=== PATIENT | female | born 1945 | race Caucasian/White ===

== ENCOUNTER 2018-04-23 13:00 | Inpatient (IN) ==
[2018-04-23 16:09] LABS: Appearance,Urine CLEAR; Bilirubin,Urine NEG (NEG); Color,Urine YELLOW; Glucose,Urine (UA) NEGATIVE (NEG); Leukocyte Esterase,Urine NEG /uL (NEG); Protein,Urine NEG (NEG); Specific Gravity,Urine 1.023 (1.000-1.035); Urine Blood NEG mg/dL (<0.03); Urobilinogen,Urine NEG (NEG)
[2018-04-23 17:40] LABS: Basophils # (Auto) 0 K/mcL (0.0-0.3); Basophils % (Auto) 0.4 % (0.0-2.0); Eosinophils # (Auto) 0.1 K/mcL (0.0-0.7); Eosinophils % (Auto) 1.5 % (0.0-7.0); Granulocytes % (Auto) 69.9 % (38.0-78.0); Lymphocytes # (Auto) 0.8 K/mcL (1.5-4.8); Lymphocytes % (Auto) 16.4 % (15.5-49.0); Mean Cell Volume 98.2 fL (80.0-100.0); Mean Corpuscular HGB Conc 33.5 g/dL (31.0-36.0); Mean Corpuscular Hemoglobin 32.9 pg (26.0-34.0); Monocytes # (Auto) 0.5 K/mcL (0.1-0.9); Monocytes % (Auto) 11.8 % (1.0-12.0); Platelet Count 150 K/mcL (140-440); Red Cell Distribution Width 14.4 % (11.5-14.5)
[2018-04-23 17:44] LABS: Blood Urea Nitrogen 11 mg/dl (8-23)
[2018-04-28] MEDS ORDERED: ceFAZolin 1 GM VIAL IV SCH (06:00)
[2018-04-28] MEDS ORDERED: ACETAMINOPHEN 500 MG TABLET PO SCH (07:00)
[2018-04-28] MEDS ORDERED: oxyCODONE 10 MG TAB.ER.12H PO SCH (07:00)
[2018-04-28] MEDS ORDERED: PREGABALIN 75 MG CAPSULE PO SCH (07:00)
[2018-04-28] MEDS ORDERED: CELECOXIB 200 MG CAPSULE PO SCH (07:00)
[2018-04-28] MEDS ORDERED: VANCOMYCIN 1,000 MG in 0.9 % SODIUM CHLORIDE 250 ML IV SCH (08:00)
[2018-04-28] MEDS ORDERED: SUCCINYLCHOLINE 20 MG/ML ML IV ONE (16:45)
[2018-04-28] MEDS ORDERED: fentaNYL 250 MCG/5 ML VIAL IV ONE (16:45)
[2018-04-28] MEDS ORDERED: PROPOFOL 200 MG/20 ML VIAL IV ONE (16:45)
[2018-04-28] MEDS ORDERED: KETAMINE 100 MG/ML ML IV ONE (16:45)
[2018-04-28] MEDS ORDERED: ONDANSETRON 4 MG/2 ML VIAL IV ONE (16:45)
[2018-04-28] MEDS ORDERED: TRANEXAMIC ACID 1,000 MG/10 ML VIAL IV ONE ×2 (16:45→18:04)
[2018-04-28] MEDS ORDERED: ROPIVACAINE HCL/PF 30 ML VIAL IJ ONE (16:45)
[2018-04-28] MEDS ORDERED: LIDOCAINE HCL/PF 100 MG/5 ML SYRINGE IV ONE (16:45)
[2018-04-28] MEDS ORDERED: GLYCOPYRROLATE 0.2 MG/ML VIAL IV ONE (16:45)
[2018-04-28] MEDS ORDERED: MIDAZOLAM 5 MG/5 ML VIAL IV ONE (16:45)
[2018-04-28] MEDS ORDERED: DEXAMETHASONE 10 MG/ML VIAL IV ONE (16:45)
[2018-04-28] MEDS ORDERED: GENTAMICIN SULFATE 800 MG/20 ML VIAL IR ONE (17:13)
[2018-04-28] MEDS ORDERED: MEPERIDINE 25 MG/ML SYRINGE IV PRN (17:35)
[2018-04-28] MEDS ORDERED: IPRATROPIUM/ALBUTEROL 3 ML AMPUL.NEB NEB PRN (17:35)
[2018-04-28] MEDS ORDERED: NALOXONE HCL 0.4 MG/ML VIAL IV PRN (17:35)
[2018-04-28] MEDS ORDERED: FLUMAZENIL 0.1 MG/ML ML IV PRN (17:35)
[2018-04-28] MEDS ORDERED: METHOCARBAMOL 1,000 MG/10 ML VIAL IV PRN (17:35)
[2018-04-28] MEDS ORDERED: HYDROmorphone 2 MG/ML VIAL IV PRN ×2 (17:35→18:04)
[2018-04-28] MEDS ORDERED: BENZOCAINE/MENTHOL 1 LOZENGE PO PRN ×2 (17:35→18:04)
[2018-04-28] MEDS ORDERED: LACTATED RINGERS 250 ML IV PRN (17:35)
[2018-04-28] MEDS ORDERED: ONDANSETRON 4 MG/2 ML VIAL IV PRN ×2 (17:35→18:04)
[2018-04-28] MEDS ORDERED: LACTATED RINGERS 1,000 ML IV SCH (17:45)
[2018-04-28] MEDS ORDERED: POLYETHYLENE GLYCOL 3350 17 GM PACKET PO PRN (18:04)
[2018-04-28] MEDS ORDERED: ACETAMINOPHEN 325 MG TABLET PO PRN (18:04)
[2018-04-28] MEDS ORDERED: BISACODYL 10 MG SUPP.RECT PR PRN (18:04)
[2018-04-28] MEDS ORDERED: FLEETS ADULT ENEMA PR PRN (18:04)
[2018-04-28] MEDS ORDERED: MAGNESIUM HYDROXIDE 30 ML ORAL.SUSP PO PRN (18:04)
[2018-04-28] MEDS ORDERED: TEMAZEPAM 15 MG CAPSULE PO PRN (18:04)
[2018-04-28] MEDS ORDERED: KETOROLAC 15 MG/ML VIAL IV PRN (18:04)
--- NOTE | 2018-04-28 18:04 | Brief Operative Note ---
Date of procedure: 04/28/18 Pre-op diagnosis: Left shoulder djd and rca Post-op diagnosis: same Procedure: Left reverse tsa with bicep tenodesis Grafts/Implants: Yes Anesthesia: SHERICE Surgeon: Modesto Siegel Intelligence Operations: Reggie Torres Estimated blood loss (cc): 100 Specimens Removed/Pathology: none sent Condition: stable Disposition: PACU
--- NOTE | 2018-04-28 18:23 | Discharge Summary ---
Ortho Discharge - TSA - Patient Instructions Diet: Regular Diet Activity: activity as tolerated, weight bearing as tolerated Total Shoulder Protocol: Leave immobilizer in place except for bathing and ROM. Abduction pillow. Continue to wear sling until seen by physician. Codman Pendulum : These exercises use momentum produced by your body to move your shoulder joint. Bend your knees and shift your weight to your front leg, then back, allowing your arm to swing in the same directions. Using the same technique, alternately shift your weight between your right and left legs, allowing your arm to swing from side to side. These exercises are also performed in counterclockwise and clockwise circular motions. Typically these exercises are performed several times per day, for a set number repetitions or minutes, such as 20 times in a row or 5 minutes at a time. Dressing Care: May shower in 2 days - Follow Up Plan Follow Up Appointments: Reggie Torres PA-C [Physician Mural Painter] - 05/15/18 3:50 pm Disposition: Home, Self-Care Prognosis: Good Rehab Potential: Good I certify that the patient requires SNF services: No Overall status at discharge: patient is progressing back to baseline - Orders For Discharge Prescriptions: Docusate Sodium [Colace] 100 mg PO BID #60 cap HYDROcodone/APAP 10/325MG [[place] 10-325Mg] 1 - 2 tab PO Q4HP PRN #75 tab PRN Reason: Pain Level 3-6
--- NOTE | 2018-04-28 18:44 | XRay Report ---
CLINICAL INFORMATION: Postsurgical follow-up TECHNIQUE: Portable AP and Y views COMPARISON: None. FINDINGS: Status post left reverse shoulder arthroplasty. Alignment appears anatomic. Left lung is poorly visualized but left basilar infiltrate is suspected. Clinical correlation and follow-up radiographs recommended. IMPRESSION: 1. Left reverse shoulder arthroplasty 2. Probable left lung infiltrates Interpreted and Authenticated by: Oskar Tim 04/28/18
[2018-04-28] MEDS: fentaNYL 100 MCG/2 ML VIAL IV PRN ×2 (18:46→18:59)
[2018-04-28] MEDS: DOCUSATE SODIUM 100 MG CAPSULE PO SCH (20:50)
[2018-04-28] MEDS: 0.9 % SODIUM CHLORIDE 10 ML SYRINGE IV SCH (20:50)
[2018-04-28] MEDS: METHOCARBAMOL 750 MG TABLET PO SCH (20:50)
[2018-04-28] MEDS: buPROPion 150 MG TAB.SR.12H PO SCH (20:50)
[2018-04-28] MEDS: 0.45 % SODIUM CHLORIDE 1,000 ML IV SCH (20:53)
[2018-04-28] MEDS ORDERED: CALCIUM (OYSTER SHELL) 500 MG TABLET PO SCH (21:00)
[2018-04-28] MEDS ORDERED: traZODone HCL 150 MG TABLET PO SCH (21:00)
[2018-04-28] MEDS ORDERED: SENNOSIDES 1 TABLET PO SCH (21:00)
[2018-04-28] MEDS ORDERED: VERAPAMIL 120 MG TAB.XL.24H PO SCH (21:00)
[2018-04-28] MEDS ORDERED: ASCORBIC ACID 500 MG TABLET PO SCH (21:00)
[2018-04-28] MEDS ORDERED: ATORVASTATIN 20 MG TABLET PO SCH (21:00)
[2018-04-28] MEDS ORDERED: amLODIPine 5 MG TABLET PO SCH (21:00)
[2018-04-28] MEDS: HYDROcodone/APAP 10/325MG TABLET PO PRN (21:31)
[2018-04-28] MEDS: FLUTICASONE PROPIONATE INH SCH (21:33)
[2018-04-28] MEDS: FLUTICASONE/SALMETEROL 500/50 INHALER #14 INH SCH (21:33)
[2018-04-28] MEDS: ceFAZolin 1 GM VIAL IV SCH (23:49)
[2018-04-29] MEDS: HYDROcodone/APAP 10/325MG TABLET PO PRN ×2 (04:42→10:31)
[2018-04-29] MEDS: 0.45 % SODIUM CHLORIDE 1,000 ML IV SCH (04:49)
[2018-04-29] MEDS: 0.9 % SODIUM CHLORIDE 10 ML SYRINGE IV SCH (06:11)
[2018-04-29] MEDS ORDERED: LEVOTHYROXINE 75 MCG TABLET PO SCH (07:30)
--- NOTE | 2018-04-29 07:34 | Orthopedic Progress Note ---
Subjective Patient information: Note initiated : 04/29/18 at 7:33 am Service Date, if different from initiated Date: [] Patient: Jacinda Fields 72 y/o F admitted on 04/28/18 for Left Reverse Total Shoulder Arthroplasty. Chief Complaint: [] Pt is stable this morning on post operative day 1 without any significant concerns or complaints. Patients vital signs have remained stable. Patients dressing is dry and is grossly intact from a neurovascular and motor standpoint. Patients 10 point ROS is otherwise negative. Objective Vital signs: Vital Signs Temp Pulse Resp BP BP Pulse Ox 04/29/18 04:45 97.4 F 84 16 116/69 92 04/28/18 23:38 97 04/28/18 23:14 97.4 F 81 16 125/71 97 04/28/18 22:20 94 04/28/18 22:14 84 121/72 83 L 04/28/18 20:44 75 138/78 98 04/28/18 20:00 97 04/28/18 19:59 73 139/82 98 04/28/18 19:44 75 130/80 96 04/28/18 19:29 77 117/71 94 04/28/18 19:14 96.4 F L 80 121/68 93 04/28/18 18:53 76 16 151/71 94 04/28/18 18:38 75 15 159/66 97 04/28/18 18:23 82 15 151/66 96 04/28/18 18:18 77 16 142/71 96 04/28/18 18:13 76 14 114/56 97 04/28/18 18:08 97.1 F 78 12 139/65 97 04/28/18 10:56 97.0 F 83 18 160/82 97 Intake and Output 04/28/18 04/29/18 04/29/18 21:59 05:59 13:59 Intake Total 240 / 240 1483 / 1483 Output Total 200 / 200 350 / 350 Balance 40 / 40 1133 / 1133 Intake: IV 783 / 783 Sodium Chloride 0.45% 1,000 ml 783 / 783 @ 100 mls/hr IV .Q10H [facility] Rx#: [id number] Oral 240 / 240 700 / 700 Output: Void Amount 200 / 200 350 / 350 Other: Meal Nourishment/Supplement Percent of Meal Consumed 100% Feeding Ability Independent Urine Color Dark Yellow Urine Odor Normal Weight 154 lb Intake & Output: Intake & Output 04/28/18 04/29/18 04/29/18 21:59 05:59 13:59 Intake Total 240 / 240 1483 / 1483 Output Total 200 / 200 350 / 350 Balance 40 / 40 1133 / 1133 Weight 154 lb Intake: IV 783 / 783 Sodium Chloride 0.45% 1,000 ml 783 / 783 @ 100 mls/hr IV .Q10H [facility] Rx#: [id number] Oral 240 / 240 700 / 700 Output: Void Amount 200 / 200 350 / 350 Other: Meal Nourishment/Supplement Percent of Meal Consumed 100% Feeding Ability Independent Urine Color Dark Yellow Urine Odor Normal Incision: Yes healing Incision clean and dry: Yes Dressing: Yes clean Weight bearing status: full Neurological exam IM: Yes motor sensory intact, Yes neurovascular intact Extremities exam IM: Yes neurovascular intact - Labs CBC & BMP: 04/23/18 14:02 04/23/18 14:02 Labs: Orthopedic Labs 04/23/18 14:02 PT 12.3 INR 0.9 APTT 22 04/23/18 14:02 Hgb 12.8 Hct 38.3 Assessment and Plan (1) History of reverse total replacement of left shoulder joint The patient has been educated regarding dressing care, Physical Therapy recommendations, home exercises, restrictions, and follow up appointments. The patient has had all necessary DME prescribed. The patient has remained relatively stable during their hospital course. Leave Dermabond patch intact until followup Status: Acute
[2018-04-29] MEDS ORDERED: POTASSIUM CHLORIDE 10 MEQ TABLET PO SCH (08:00)
[2018-04-29] MEDS ORDERED: NABUMETONE 500 MG TABLET PO SCH (08:00)
--- NOTE | 2018-04-29 08:22 | Operative Note ---
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 PROCEDURE: Left reverse total shoulder and biceps tenodesis. SURGEON: Modesto Siegel MD IMPORTER OR EXPORTER: Reggie Torres PA-C ANESTHESIA: General anesthesia. COMPLICATIONS: None. ESTIMATED BLOOD LOSS: About 100 mL IMPLANTS: A size 10 stem with a standard thickness poly, 36 mm glenosphere metaglene and a central screw measuring 32, 2 Peripheral screws, 32 and a 24 screw. A small amount of cement was used to fix the stem to help it grow in because of the softness of the bone. DESCRIPTION OF PROCEDURE: The patient was brought to the operating room and put to sleep with general LMA anesthesia. Once asleep, the patient had the left arm sterilely prepped and draped in the usual sterile fashion. Ioban was placed over the skin and a timeout had been performed. The consent form was read and initials on the skin as well as the x-rays were all confirmatory of the left reverse total shoulder. At this point, we proceeded with a deltopectoral approach. Anteriorly we made about a 4 inch incision, identified the deltoid and the cephalic vein was retracted laterally. We then retracted the conjoint tendon medially. We released the subscap and the biceps tendon. The biceps tendon was then identified and tenodesed to the pectoralis major muscle with #1 Ethibond stitch in a figure-of-8 fashion. Once done, we then proceeded with subluxing the head or dislocating the head anteriorly. We released the soft tissues inferiorly and removed spurs and loose bodies. Once done, we then made our neck cut at 130 degree angle in 20 degrees of retroversion using the [employer] guide. Once this had been done, we irrigated thoroughly and then subluxed the head posteriorly, identified the glenoid and performed a 360 degree capsular release. I placed the pin centrally and reamed up to the size 36, placed the glenosphere. The glenosphere was placed centrally as well and we placed a central screw measuring 32 mm in length. This is a 6.5 central screw with excellent fixation and compression of the glenoid; 3 peripheral screws, 2 32 mm screws, one 24 mm screw was placed. We placed a 36 mm glenosphere without offset or eccentricity. This was tapped into place, excellent fixation achieved. We irrigated thoroughly and then subluxed the humerus anterior to the glenoid and prepared the shaft. This was broached up to a size 10. We then trialed the size 10 stem with a standard poly. This fit very nicely after making some adjustment trimmings. We placed a small amount of cement down into the canal after preparing the bone and the proximal portion of the stem was porous ingrowth which was tapped into place with a 10 stem. A standard thickness poly was tapped into place and this was reduced and very stable. The tension was perfect and we had 1 mm of shuck when we pulled the arm. This was very stable. We irrigated thoroughly and then repaired the deltopectoral interval as well as the skin with Stratafix. Adhesive closure was placed on the skin with a standard bandage. A DonJoy sling was fitted and given to the patient at the end of the case. Blood loss was about 100 mL. No complications. KIRAH:maurice Job ID: [id number] Doc ID: [id number] Modesto Siegel MD
[2018-04-29] MEDS: METHOCARBAMOL 750 MG TABLET PO SCH (08:44)
[2018-04-29] MEDS: buPROPion 150 MG TAB.SR.12H PO SCH (08:45)
[2018-04-29] MEDS: FLUTICASONE/SALMETEROL 500/50 INHALER #14 INH SCH (08:46)
[2018-04-29] MEDS: DOCUSATE SODIUM 100 MG CAPSULE PO SCH (08:47)
[2018-04-29] MEDS: FLUTICASONE PROPIONATE INH SCH (08:47)
[2018-04-29] MEDS: ceFAZolin 1 GM VIAL IV SCH (08:59)
[2018-04-29] MEDS ORDERED: LOSARTAN/HCTZ 100/25 TABLET PO SCH (09:00)
[2018-04-29] MEDS ORDERED: PANTOPRAZOLE 40 MG TABLET PO SCH (09:00)
[2018-04-29] MEDS ORDERED: MONTELUKAST 10 MG TABLET PO SCH (09:00)
[2018-04-29] MEDS ORDERED: MAGNESIUM OXIDE 400 MG TABLET PO SCH (09:00)
[2018-04-29] MEDS ORDERED: VITAMIN D3 5,000 UNIT CAPSULE PO SCH (09:00)
[2018-04-29] MEDS ORDERED: MULTIVIT,THER IRON,CA,FA & MIN 1 TABLET PO SCH (09:00)
[2018-04-29] MEDS ORDERED: FISH OIL 1,000 MG CAPSULE PO SCH (09:00)
[2018-04-29] MEDS ORDERED: LOSARTAN 50 MG TABLET PO SCH (09:00)
[2018-04-29] MEDS ORDERED: HYDROCHLOROTHIAZIDE 25 MG TABLET PO SCH (09:00)
[2018-04-29] MEDS ORDERED: ESTROGENS, CONJUGATED 0.9 MG TABLET PO SCH (09:00)
[2018-04-29] MEDS ORDERED: PARoxetine 20 MG TABLET PO SCH (09:00)
== END 2018-04-29 13:00 | disposition home or self-care (01) | DRG 483 ==
LOC: MEDSUR 04-28 10:56
PROVIDERS: ADMIT Orthopaedic Surgery; ATTEND Orthopaedic Surgery
CPT/HCPCS: 97161

== ENCOUNTER 2021-10-10 08:21 | Inpatient (IN) ==
--- NOTE | 2021-10-10 08:25 | Emergency Department Note ---
HPI General Chief complaint: Weakness Stated complaint: weakness, vision change Time Seen by Provider: 10/10/21 08:25 Source: patient and family (Daughter) Mode of arrival: wheelchair Limitations: physical limitation (Confusion) History of Present Illness HPI Narrative: Narrative: 75-year-old female presents emerged department because of weakness. Patient states she has not felt well for 3 weeks. She is lost her appetite. She has no new pains. She has sores on her body which she has had sores for years she states. her daughter says she is just generally been declining. Daughter states she has had confusion the past 1 to 2 weeks. Patient complains of left eye vision split. Patient states she has scratches from both her cat and her dog. Patient has a history of MRSA. Rates her discomfort as mild. Constant since it started worse with time. Patient has had the COVID-vaccine. Patient states she drinks 3 cans of beer a day, 16 ounces. Patient has history of asthma, TIA but no hepatitis or liver disease and no cardiac disease. Related Data Home Medications Medication Instructions Recorded Confirmed cholecalciferol (vitamin D3) 125 5,000 unit PO QDAY 11/16/14 03/02/21 mcg (5,000 unit) capsule conjugated estrogens 0.9 mg tablet 0.9 mg PO DAILY 11/16/14 03/02/21 levothyroxine 75 mcg tablet 75 mcg PO DAILY 11/16/14 03/02/21 losartan 100 1 tab PO DAILY 11/16/14 03/02/21 mg-hydrochlorothiazide 25 mg tablet montelukast 10 mg tablet 10 mg PO QDAY 11/16/14 03/02/21 xgfrbssw-fjml-xao-green tea ex 18 1 each PO QDAY 11/16/14 03/02/21 mg-0.4 mg-27 mg tablet nabumetone 750 mg tablet 750 mg PO BIDCC 11/16/14 03/02/21 omega-3 fatty acids-fish oil 340 1,000 mg PO DAILY 11/16/14 03/02/21 mg-1,000 mg capsule pantoprazole 40 mg tablet,delayed 40 mg PO QDAY 11/16/14 03/02/21 release verapamil 240 mg tablet,extended 240 mg PO HS 11/16/14 03/02/21 release ascorbic acid (vitamin C) 500 mg 500 mg PO HS 11/10/15 03/02/21 tablet magnesium oxide 400 mg PO QDAY 11/10/15 03/02/21 calcium carbonate 500 mg calcium 1,000 mg PO HS 04/23/18 03/02/21 (1,250 mg) tablet fluticasone 500 mcg-salmeterol 50 1 inh INH BID 04/23/18 03/02/21 mcg/dose blistr powdr for inhalation fluticasone propionate 250 1 each INH BID 04/23/18 03/02/21 mcg/actuation blister powder for inhalation potassium chloride 10 mEq 10 meq PO BIDCC 04/23/18 03/02/21 tablet,extended release albuterol sulfate 90 mcg/actuation 2 puff INHALATION Q4H PRN g 11/21/18 03/02/21 aerosol inhaler aspirin 325 mg tablet 325 mg PO QDAY 11/21/18 03/02/21 atorvastatin 10 mg tablet 10 mg PO QHS 11/21/18 03/02/21 clobetasol 0.05 % scalp solution 1 applic TOPICAL QDAY 11/21/18 03/02/21 amlodipine 5 mg tablet 5 mg PO QDAY tab 12/10/18 03/02/21 methocarbamol 750 mg tablet 750 mg PO TID tab 12/10/18 03/02/21 Previous Rx's Medication Instructions Recorded hydrocodone 5 mg-acetaminophen 325 1 tab PO Q4H PRN #20 tab 04/25/20 mg tablet hydrocodone 5 mg-acetaminophen 325 1 tab PO Q6H PRN #10 tab 10/04/20 mg tablet hydrochlorothiazide 12.5 mg tablet 12.5 mg PO QAM #10 tab 10/07/20 trazodone 300 mg tablet See Rx Instructions .ROUTE 01/31/21 .COMPLEX #180 tab gabapentin 400 mg capsule 400 mg PO TID #1 cap 03/02/21 duloxetine 20 mg capsule,delayed 40 mg PO QDAY #180 cap 04/17/21 release prazosin 1 mg capsule See Rx Instructions .ROUTE 05/29/21 .COMPLEX #90 cap Allergies Allergy/AdvReac Type Severity Reaction Status Date / Time latex Allergy Intermediate Blister Verified 10/10/21 08:24 naproxen Allergy Mild Blisters Verified 10/10/21 08:24 quinapril [From Accupril] Allergy Mild Cough Verified 10/10/21 08:24 ciprofloxacin [From Cipro] Allergy Unknown Vomiting Verified 10/10/21 08:24 metoclopramide [From Reglan] AdvReac Mild Shakiness Verified 10/10/21 08:24 niacin AdvReac Mild Chest Pain Verified 10/10/21 08:24 venlafaxine [From Effexor] AdvReac Mild Insomnia Verified 10/10/21 08:24 Review of Systems ROS ROS Narrative: Narrative: Constitutional: Denies fever Eyes: Denies eye discharge ENT ED: Denies throat pain or rhinorrhea Cardiovascular: Denies chest pain Respiratory: Reports shortness of breath (When she exerts herself.) Gastrointestinal: Denies nausea or vomiting Genitourinary: Denies dysuria Musculoskeletal: Reports back pain Integumentary: Denies rash Neurological: Denies headache Psychiatric: Reports depression; Denies anxiety PFSH Narrative Patient History Narrative: Narrative: Medical/Surgical/Family History All Active Problems (Updated 10/10/21 @ 17:03 by Wesly Mccoy MD) Eyelid laceration, right (Chronic) Periorbital hematoma of right eye (Chronic) Laceration (Chronic) Traumatic hematoma of face (Chronic) Alcohol use disorder (Chronic) Contusion (Chronic) Fracture of distal end of fibula (Chronic) Ankle fracture (Chronic) Postoperative pain (Chronic) Fall (on) (from) other stairs and steps, initial encounter (Chronic) Facial laceration (Chronic) Abrasion, face w/o infection (Chronic) Alcohol ingestion (Chronic) Encounter for removal of sutures (Chronic) 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) Depression (Chronic) Anxiety (Chronic) MRSA (methicillin resistant Staphylococcus aureus) (Chronic) Tubular adenoma of colon (Chronic) Hypothyroidism (Chronic) Hypercholesterolemia (Chronic) Hyperlipidemia (Chronic) Dyslipidemia (Chronic) Hypomagnesemia (Chronic) Anemia (Chronic) Hypertension (Chronic) GERD (gastroesophageal reflux disease) (Chronic) Eczema (Chronic) Rosacea (Chronic) Degenerative joint disease (Chronic) Neck pain (Chronic) Low back pain (Chronic) Steroid-induced osteopenia (Chronic) Osteopenia (Chronic) Hormone replacement therapy (Chronic) Insomnia (Chronic) Cough (Chronic) Overweight (Chronic) Generalized anxiety disorder (Acute) Alcohol use disorder, mild, abuse (Acute) Major depression, recurrent, chronic (Acute) Acute knee pain (Acute) Radiculopathy, lumbar region (Chronic) Cervical spondylitis (Chronic) Chronic pain (Chronic) Cervicogenic headache (Chronic) Dysesthesia (Chronic) Cervical radiculopathy (Chronic) Asthma (Chronic) Bronchitis (Chronic) Visit for wound check (Acute) Acute hyponatremia (Acute) Weakness (Acute) Edema, peripheral (Acute) Chronic low back pain (Chronic) Weakness (Acute) Acute confusion (Acute) Urinary tract infection (Acute) Cellulitis (Acute) Cranial nerve palsy (Acute) Medical History Alcohol use disorder Anemia Anxiety Asthma Bronchitis Cervical radiculopathy Cervical spondylitis Cervicogenic headache Chronic low back pain Chronic pain Contusion Cough Degenerative joint disease Depression Dysesthesia Dyslipidemia Eczema Eyelid laceration, right GERD (gastroesophageal reflux disease) Hormone replacement therapy Hypercholesterolemia Hyperlipidemia Hypertension Hypomagnesemia Hypothyroidism Insomnia Laceration Low back pain MRSA (methicillin resistant Staphylococcus aureus) Neck pain Osteopenia Overweight Periorbital hematoma of right eye Radiculopathy, lumbar region Rosacea Steroid-induced osteopenia Traumatic hematoma of face Tubular adenoma of colon Surgical History History of cataract surgery (~07/16/11) History of colonoscopy (~04/21/18) History of endoscopy (~04/21/18) History of hysterectomy (~05/13/92) History of lumbar discectomy (~06/16/12) History of shoulder surgery (~04/28/18) X2-09/01/2012 History of surgery INTERSPINOUS IMPLANT L2/3, L3/4 w/sed 12/09/1909/29 TF PANFILO #2 Lt L5-S1 w/sed 09/15/1908/30 TF PANFILO #1 Left L5-S1 w/sed 09/01/201911/24 SCS Permanent [facility] 11/19/201407/25 SCS Trial Cervical w/sed 08/06/1404/25 RFTC Bilat C3-7 w/sed 05/03/1404/25 MBB Bilat C3-7 w/sed 04/20/1403/26 MBB cervical, Bilat w/sed 03/30/201401/24 HE #1 w/cath w/sed 01/21/1409/23 HE #3 w/cath w/sed 09/22/201305/26 HE #2 w/cath w/sed 06/09/1305/26 HE #1 w/cath w/sed 05/25/2013 History of tonsillectomy and adenoidectomy (~05/29/1949) History of total knee arthroplasty (~10/11/14) History of tubal ligation (~05/13/80) Family History Father Alcohol abuse Mother Alcohol abuse Arthritis Glaucoma CVA (cerebral vascular accident) Family/Other Arthritis Aunt Asthma Aunt Glaucoma Aunt Grandfather Malignant tumor of colon Paternal Grandmother Diabetes Paternal Son Hypercholesterolemia Social History Smoking Status: Former smoker Alcohol Intake Frequency: a few times a week Substance Use: does not use Exam Narrative Narrative: Narrative: General Limitations: physical limitation (Confusion) General appearance: Present alert and in no apparent distress Head Head: Present atraumatic and normocephalic Eye Eye: Present other (Esotropia. The left eye turns inward when the right eye looks straight. The right eye turns inward when the left eye looks straight.) ENT ENT: Present normal oropharynx Neck Neck: Present normal inspection and trachea midline Respiratory Respiratory: Absent respiratory distress Cardiovascular Cardiovascular: Present regular rate and normal rhythm Adbominal Abdominal: Present soft; Absent tenderness Extremities Extremities: Present normal inspection (Thin, small muscle mass) Back Back: Present normal inspection Neurological Neurological: Present alert and normal gait (Unable to ambulate without assistance) Psychiatric Psychiatric: Present normal affect and normal mood; Absent agitated Skin Skin: Present warm (WNL), dry and other (Multiple lesions on extremities and neck. Some with surrounding erythema.) Course Vital Signs Vital signs: Vital Signs Temperature 97.6 F 10/10/21 08:21 Pulse Rate 90 10/10/21 08:21 Respiratory Rate 20 10/10/21 08:21 Blood Pressure 160/101 10/10/21 08:21 Pulse Oximetry (%) 100 10/10/21 08:21 Temperature 97.6 F 10/10/21 08:21 Pulse Rate 89 10/10/21 15:46 Respiratory Rate 17 10/10/21 16:45 Blood Pressure 149/114 10/10/21 16:45 Pulse Oximetry (%) 100 10/10/21 15:46 MDM MDM Narrative Medical decision making narrative: Narrative: Elderly female presents emerge department with generalized weakness and worsening condition of 3 weeks duration. Differential diagnosis includes sepsis, pneumonia, influenza, COVID infection, urinary tract infection, pyelonephritis, MRSA, cellulitis, other. White count was 6.6 with 55 neutrophils 30 lymphs and 14 monos. Hemoglobin was normal at 13.6. MCV was elevated at 106.1 which is compatible with folate deficiency and alcoholism. Lactic acid was normal at 1.4. Sodium normal at 135 and potassium normal at 34 with chloride normal at 102. Bicarb was low at 16. BUN was low at 6 with a normal creatinine of 0.7. AST was elevated at 35. Glucose normal at 91. Urinalysis showed positive nitrites and greater than 182 WBCs per high-powered field. Chest x-ray she was negative. COVID test was negative. Based on the above I diagnosed the patient with urinary tract infection and cellulitis. She was given Septra DS 1 p.o. to address the cellulitis of a possible MRSA infection. She was given ceftriaxone 1 g IV to address the urinary tract infection as well as to cover for cellulitis. We attempted to ambulate the patient but she was unable to. An NIH stroke scale was performed and the patient scored 1 patient for ignoring the vision and the lateral lower corner of her left eye. CT scan of the head was obtained which showed no acute pathology. Case was discussed with washer assembler Dr. Jackson. He felt the diagnosis was likely a mini stroke affecting cranial nerve III, IV or causing the palsy. He recommended that Dr. Ariane Chen obtain a carotid Doppler for further evaluation of why she had a stroke. He said he would be happy to see her in his office later this week or next week. Nurses should call the office to make a follow-up appointment for this patient. He recommended patching 1 eye to help the vision problem so that she be able to walk. We patch 1 eye and the patient said she was improved but still unable to ambulate. Patient was also noted to be somewhat confused and having pulled her own IV out. Based on the above I consulted Dr. Jarquin, our hospitalist to see about admission of this patient. We discussed the patient and he agreed to admit her. Lab Data Result diagrams: 10/10/21 09:00 10/10/21 09:00 Labs: Lab Results 05/10/10/21 10/10/21 Range/Units 09:00 09:00 09:00 WBC 6.6 (4.5-11.0) K/mcL RBC 4.13 (3.59-5.38) M/mcL Hgb 13.6 (11.2-15.7) g/dL Hct 43.8 (34.1-44.9) % MCV 106.1 H (80.0-100.0) fL MCH 32.9 (26.0-34.0) pg MCHC 31.1 (31.0-36.0) g/dL RDW 13.1 (11.5-14.5) % Plt Count 194 (140-440) K/mcL MPV 9.8 (7.4-10.4) fL Neut % (Auto) 54.9 (38.0-78.0) % Lymph % (Auto) 29.7 (15.5-49.0) % [place] % (Auto) 13.7 H (1.0-12.0) % Eos % (Auto) 1.2 (0.0-7.0) % Baso % (Auto) 0.5 (0.0-2.0) % Lymph # (Auto) 1.95 (1.50-4.80) K/mcL [place] # (Auto) 0.90 (0.10-0.90) K/mcL Eos # (Auto) 0.08 (0.00-0.70) K/mcL Baso # (Auto) 0.03 (0.00-0.30) K/mcL Absolute Neutrophils 3.60 (1.80-8.00) K/mcL VBG Lactic Acid (0.5-2.0) mmol/L Sodium 135 (133-145) mmol/L Potassium 3.4 (3.3-5.1) mmol/L Chloride 102 (96-108) mmol/L Carbon Dioxide 16 L (22-30) mmol/L Anion Gap 17.0 H (8.0-16.0) BUN 6 L (8-23) mg/dL Creatinine 0.7 (0.6-1.1) mg/dL GFR Calculation 85 Glucose 91 (70-105) mg/dL Calcium 8.8 (8.6-10.4) mg/dL Total Bilirubin 0.7 (0.1-1.0) mg/dL AST 35 H (<32) U/L ALT 20 (<40) U/L Alkaline Phosphatase 70 (39-117) U/L Ammonia (11-51) umol/L Total Protein 6.5 (5.9-8.4) gm/dL Albumin 2.8 L (3.2-5.2) gm/dL Globulin 3.7 (2.2-3.7) gm/dL Albumin/Globulin Ratio 0.8 L (1.0-2.3) Urine Color Urine Appearance (Clear) Urine pH (5.0-9.0) Ur Specific [place] (1.000-1.035) Urine Protein (Negative) mg/dL Urine Glucose (UA) (Negative) mg/dL Urine Ketones (Negative) mg/dL Urine Occult Blood (Negative) kristen/mcL Urine Nitrate (Negative) Urine Bilirubin (Negative) mg/dL Urine Urobilinogen mg/dL Ur Leukocyte Esterase (Negative) /uL Urine RBC (0-3) /hpf Urine WBC (0-4) /hpf Ur Squamous Epith Cells (0-4) /hpf Urine Bacteria (0) /hpf Urine Mucus (None) /hpf Ur Culture Indicated? Ethyl Alcohol < 0.010 (<0.010) gm/dL 10/10/21 10/10/21 10/10/21 Range/Units 09:25 09:25 10:20 WBC (4.5-11.0) K/mcL RBC (3.59-5.38) M/mcL Hgb (11.2-15.7) g/dL Hct (34.1-44.9) % MCV (80.0-100.0) fL MCH (26.0-34.0) pg MCHC (31.0-36.0) g/dL RDW (11.5-14.5) % Plt Count (140-440) K/mcL MPV (7.4-10.4) fL Neut % (Auto) (38.0-78.0) % Lymph % (Auto) (15.5-49.0) % [place] % (Auto) (1.0-12.0) % Eos % (Auto) (0.0-7.0) % Baso % (Auto) (0.0-2.0) % Lymph # (Auto) (1.50-4.80) K/mcL [place] # (Auto) (0.10-0.90) K/mcL Eos # (Auto) (0.00-0.70) K/mcL Baso # (Auto) (0.00-0.30) K/mcL Absolute Neutrophils (1.80-8.00) K/mcL VBG Lactic Acid 1.4 (0.5-2.0) mmol/L Sodium (133-145) mmol/L Potassium (3.3-5.1) mmol/L Chloride (96-108) mmol/L Carbon Dioxide (22-30) mmol/L Anion Gap (8.0-16.0) BUN (8-23) mg/dL Creatinine (0.6-1.1) mg/dL GFR Calculation Glucose (70-105) mg/dL Calcium (8.6-10.4) mg/dL Total Bilirubin (0.1-1.0) mg/dL AST (<32) U/L ALT (<40) U/L Alkaline Phosphatase (39-117) U/L Ammonia 20 (11-51) umol/L Total Protein (5.9-8.4) gm/dL Albumin (3.2-5.2) gm/dL Globulin (2.2-3.7) gm/dL Albumin/Globulin Ratio (1.0-2.3) Urine Color Yellow Urine Appearance Cloudy A (Clear) Urine pH 5.5 (5.0-9.0) Ur Specific [place] 1.015 (1.000-1.035) Urine Protein Negative (Negative) mg/dL Urine Glucose (UA) Negative (Negative) mg/dL Urine Ketones Negative (Negative) mg/dL Urine Occult Blood Negative (Negative) kristen/mcL Urine Nitrate Positive A (Negative) Urine Bilirubin Negative (Negative) mg/dL Urine Urobilinogen 2.0 e.u./dl A mg/dL Ur Leukocyte Esterase Large A (Negative) /uL Urine RBC 6 H (0-3) /hpf Urine WBC > 182 H (0-4) /hpf Ur Squamous Epith Cells 0 (0-4) /hpf Urine Bacteria Many A (0) /hpf Urine Mucus Many A (None) /hpf Ur Culture Indicated? yes Ethyl Alcohol (<0.010) gm/dL ED POC Tests ED POC Tests: SWAPNA - SARS Antigen Negative Radiology Data Radiology results reviewed: Yes I reviewed the patient's radiology results. EKG Data EKG #1: EKG attestation: Yes I reviewed and interpreted this EKG. EKG shows normal: sinus rhythm Rate: normal [place]/QRS: normal and left axis deviation Heart block present: None ST segment elevation in: None ST segment depression in: None Interpretation: other (Abnormal EKG. Old inferior infarct.) Discharge Plan Patient/Caregiver Discharge Instructions Pt seen by SECURITY INSTALLER/PA only: No Clinical Impression: Weakness, Acute confusion, Urinary tract infection, Cellulitis, Cranial nerve palsy Patient Disposition: Still a Patient Condition: Fair Follow up with: Ariane Chen MD [Primary Care Provider] - Prescriptions: No Action gabapentin 400 mg capsule 400 mg PO TID Qty: 1 0RF amlodipine 5 mg tablet 5 mg PO QDAY 0RF hydrocodone-acetaminophen 5-325 mg tablet 1 tab PO Q4H PRN (Reason: pain) Qty: 20 0RF trazodone 300 mg tablet See Rx Instructions .ROUTE .COMPLEX Qty: 180 0RF Rx Instructions: ii tabs po qhs prn difficulty sleeping; duloxetine 20 mg capsule,delayed release(DR/EC) 40 mg PO QDAY Qty: 180 0RF prazosin 1 mg capsule See Rx Instructions .ROUTE .COMPLEX Qty: 90 0RF Dose Instruction: TAKE 1 CAPSULE AT BEDTIME Rx Instructions: TAKE 1 CAPSULE AT BEDTIME aspirin 325 mg tablet 325 mg PO QDAY 0RF atorvastatin 10 mg tablet 10 mg tablet 10 mg PO QHS 0RF clobetasol 0.05 % solution 1 applic TOPICAL QDAY 0RF albuterol sulfate 90 mcg/actuation HFA aerosol inhaler 2 puff INHALATION Q4H PRN0RF omega-3 fatty acids-fish oil 1,000 MG capsule 1,000 mg PO DAILY 0RF levothyroxine 75 MCG tablet 75 mcg PO DAILY 0RF losartan-hydrochlorothiazide 1 TAB tablet 1 tab PO DAILY 0RF montelukast 10 MG tablet 10 mg PO QDAY 0RF dqmkiywi-msys-swf-green tea ex 1 EACH tablet 1 each PO QDAY 0RF nabumetone 750 MG tablet 750 mg PO BIDCC 0RF pantoprazole 40 MG tablet,delayed release (DR/EC) 40 mg PO QDAY 0RF conjugated estrogens 0.9 MG tablet 0.9 mg PO DAILY 0RF verapamil 240 MG tablet extended release 240 mg PO HS 0RF cholecalciferol (vitamin D3) 5,000 UNIT capsule 5,000 unit PO QDAY 0RF methocarbamol 750 mg tablet 750 mg PO TID 0RF ascorbic acid (vitamin C) 500 MG tablet 500 mg PO HS 0RF magnesium oxide 400 MG tablet 400 mg PO QDAY 0RF fluticasone propion-salmeterol 500-50 inhaler 1 inh INH BID 0RF potassium chloride 10 MEQ tablet extended release 10 meq PO BIDCC 0RF calcium carbonate 500 MG tablet 1,000 mg PO HS 0RF fluticasone propionate 250 MCG blister with device 1 each INH BID 0RF hydrocodone-acetaminophen 5-325 mg tablet 1 tab PO Q6H PRN (Reason: pain) Qty: 10 0RF hydrochlorothiazide 12.5 mg tablet 12.5 mg PO QAM Qty: 10 0RF
[2021-10-10] MEDS ORDERED: SULFAMETHOXAZOLE/TRIMETHOPRIM 1 TABLET PO ONE (08:58)
--- NOTE | 2021-10-10 09:20 | XRay Report ---
INDICATION: Chest pain TECHNIQUE: AP portable upright chest x-ray COMPARISON: Previous chest x-rays dated 09/29/2020, 10/04/2020, 02/09/2014 FINDINGS: Lungs:Lungs are negative. No focal pulmonary parenchymal infiltrate or mass Heart, vascular:No significant cardiomegaly. Pulmonary vascularity is normal. No pulmonary edema or pulmonary congestion Mediastinum, cullen:No mediastinal widening. No hilar mass Pleura:No pleural fluid. No pleural-based mass or calcification Skeletal:Previous bilateral shoulder arthroplasties. IMPRESSION: Negative AP portable chest x-ray Interpreted and Authenticated by: Oskar Tim 10/10/21
[2021-10-10 11:09] LABS: Basophils # (Auto) 0.03 K/mcL (0.00-0.30); Basophils % (Auto) 0.5 % (0.0-2.0); Eosinophils # (Auto) 0.08 K/mcL (0.00-0.70); Eosinophils % (Auto) 1.2 % (0.0-7.0); Hematocrit 43.8 % (34.1-44.9); Hemoglobin 13.6 g/dL (11.2-15.7); Lymphocytes # (Auto) 1.95 K/mcL (1.50-4.80); Lymphocytes % (Auto) 29.7 % (15.5-49.0); Mean Cell Volume 106.1 fL (80.0-100.0); Mean Corpuscular HGB Conc 31.1 g/dL (31.0-36.0); Mean Platelet Volume 9.8 fL (7.4-10.4); Monocytes % (Auto) 13.7 % (1.0-12.0); Neutrophils % (Auto) 54.9 % (38.0-78.0); Platelet Count 194 K/mcL (140-440); RBC 4.13 M/mcL (3.59-5.38); Red Cell Distribution Width 13.1 % (11.5-14.5); WBC 6.6 K/mcL (4.5-11.0)
[2021-10-10 11:14] LABS: Alcohol, Blood < 10.0 mg/dL; Alcohol,Blood < 0.010 gm/dL (<0.010)
[2021-10-10 11:32] LABS: ALT/SGPT 20 U/L (<40); AST/SGOT 35 U/L (<32); Albumin 2.8 gm/dL (3.2-5.2); Albumin/Globulin Ratio 0.8 (1.0-2.3); Alkaline Phosphatase 70 U/L (39-117); Bilirubin,Total 0.7 mg/dL (0.1-1.0); Blood Urea Nitrogen 6 mg/dL (8-23); Calcium 8.8 mg/dL (8.6-10.4); Carbon Dioxide 16 mmol/L (22-30); Chloride 102 mmol/L (96-108); Globulin 3.7 gm/dL (2.2-3.7); Glomerular Filtration Rate 85; Glucose 91 mg/dL (70-105)
[2021-10-10 11:53] LABS: Appearance,Urine Cloudy (Clear); Bacteria,Urine MANY /hpf (0); Bilirubin,Urine Negative (Negative); Color,Urine Yellow; Culture Indicated,Urine yes; Glucose,Urine (UA) Negative (Negative); Ketones,Urine Negative (Negative); Leukocyte Esterase,Urine Large /uL (Negative); Mucus,Urine MANY /hpf; Nitrate,Urine Positive (Negative); PH,Urine 5.5 (5.0-9.0); Protein,Urine Negative (Negative); Specific Gravity,Urine 1.015 (1.000-1.035); Urine Blood Negative ery/mcL (Negative); Urine RBC 6 /hpf (0-3); Urine Squamous Epithelial Cell 0 /hpf (0-4); Urine WBC > 182 /hpf (0-4); Urobilinogen,Urine 2.0 E.U./dL mg/dL
[2021-10-10] MEDS ORDERED: cefTRIAXone 1 GM VIAL IV ONE (12:01)
--- NOTE | 2021-10-10 14:23 | Cat Scan Report ---
INDICATION: double vision, loss of balance COMPARISON: None. TECHNIQUE: Axial noncontrast-enhanced images through the brain. Sagittally and coronally reformatted images. FINDINGS: Cerebral hemispheres:No acute intracranial hemorrhage. No intra-axial hematoma. No focal attenuation abnormality or localized mass effect. There is cerebral atrophy with ventricular enlargement. There is white matter abnormality consistent with small vessel ischemic change in this 75-year-old patient. Brainstem and cerebellum:No intra-axial abnormality Extra-axial:No acute hemorrhage. No subdural or epidural hematoma. No subarachnoid hemorrhage. Basilar cisterns are normal Calvarial:No calvarial fracture. No lytic lesion Temporal bones are negative. No destructive lesions Soft tissue, orbits, sinuses:Orbits and visualized facial soft tissues and paranasal sinuses are negative IMPRESSION: 1. No acute intracranial hemorrhage. No focal abnormality 2. Cerebral atrophy. White matter abnormality consistent with small vessel ischemic change The exam was performed using radiation dose optimization techniques including, but not limited to, automated exposure control, adjustment of the mA and/or kV according to patient size and use of iterative reconstruction technique. Interpreted and Authenticated by: Oskar Tim 10/10/21
--- NOTE | 2021-10-10 17:14 | Internal Med History&Physical ---
HPI History of Present Illness Patient information: Note initiated : 10/10/21 at 4:41 pm Service Date, if different from initiated Date: [] Patient: Jacinda Fields 75 y/o F admitted on for weakness, vision change. Chief Complaint: [] History of present illness: Ms. Fields is a 75 year old F Presents the ED with generalized weakness poor appetite and left eye problems. Poor ambulation. She seemed mildly confused on what presentation ED. She also presented with esotropia of the left eye. Case was discussed with Dr. Santoro who considered stroke. CT brain was negative for any acute process but did show cerebral atrophy with enlarged ventricles and small vessel ischemic changes. Patient to follow-up with Dr. Santoro. Patient says she had surgery a year ago because of eye issues on the left eye and now she says she is having the same problem. Patient's urinalysis with nitrites and leukocyte esterase. Patient denies dysuria but does note dark urine and malodorous urine. CBC is unremarkable except for macrocytosis. Chemistry panel unremarkable except for low albumin and acidosis. Patient too weak to walk in the ED. Also noted to have multiple wounds on her body. When asked about that she says she is picks at her scabs. Asked how she got them she does not know she says maybe she bumped against this or that and that she has dogs. Denies fevers or chills. She lives at home with her and son. She does admit to feeling some confusion. Patient denies smoking or drug use. She does drink 3 beers a day and no more. Review of Systems: Pertinent positives as above. Denies headache/fever/chills/nausea/vomitin g/chest or abdominal pain/cough/dyspnea/diarrhea. Remaining 10 point review of system reviewed negative. 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) Depression (Chronic) Anxiety (Chronic) MRSA (methicillin resistant Staphylococcus aureus) (Chronic) Tubular adenoma of colon (Chronic) Hypothyroidism (Chronic) Hypercholesterolemia (Chronic) Hyperlipidemia (Chronic) Dyslipidemia (Chronic) Hypomagnesemia (Chronic) Anemia (Chronic) Hypertension (Chronic) GERD (gastroesophageal reflux disease) (Chronic) Eczema (Chronic) Rosacea (Chronic) Degenerative joint disease (Chronic) Neck pain (Chronic) Low back pain (Chronic) Steroid-induced osteopenia (Chronic) Osteopenia (Chronic) Hormone replacement therapy (Chronic) Insomnia (Chronic) Cough (Chronic) Overweight (Chronic) Generalized anxiety disorder (Acute) Alcohol use disorder, mild, abuse (Acute) Major depression, recurrent, chronic (Acute) Acute knee pain (Acute) Radiculopathy, lumbar region (Chronic) Cervical spondylitis (Chronic) Chronic pain (Chronic) Cervicogenic headache (Chronic) Dysesthesia (Chronic) Cervical radiculopathy (Chronic) Asthma (Chronic) Bronchitis (Chronic) Visit for wound check (Acute) Acute hyponatremia (Acute) Weakness (Acute) Edema, peripheral (Acute) Chronic low back pain (Chronic) Weakness (Acute) Acute confusion (Acute) Urinary tract infection (Acute) Cellulitis (Acute) Cranial nerve palsy (Acute) Medical History Alcohol use disorder Anemia Anxiety Asthma Bronchitis Cervical radiculopathy Cervical spondylitis Cervicogenic headache Chronic low back pain Chronic pain Contusion Cough Degenerative joint disease Depression Dysesthesia Dyslipidemia Eczema Eyelid laceration, right GERD (gastroesophageal reflux disease) Hormone replacement therapy Hypercholesterolemia Hyperlipidemia Hypertension Hypomagnesemia Hypothyroidism Insomnia Laceration Low back pain MRSA (methicillin resistant Staphylococcus aureus) Neck pain Osteopenia Overweight Periorbital hematoma of right eye Radiculopathy, lumbar region Rosacea Steroid-induced osteopenia Traumatic hematoma of face Tubular adenoma of colon Surgical History History of cataract surgery (~07/16/11) History of colonoscopy (~04/21/18) History of endoscopy (~04/21/18) History of hysterectomy (~05/13/92) History of lumbar discectomy (~06/16/12) History of shoulder surgery (~04/28/18) X2-09/01/2012 History of surgery INTERSPINOUS IMPLANT L2/3, L3/4 w/sed 12/09/1909/29 TF PANFILO #2 Lt L5-S1 w/sed 09/15/1908/30 TF PANFILO #1 Left L5-S1 w/sed 09/01/201911/24 SCS Permanent [facility] 11/19/201407/25 SCS Trial Cervical w/sed 08/06/1404/25 RFTC Bilat C3-7 w/sed 05/03/1404/25 MBB Bilat C3-7 w/sed 04/20/1403/26 MBB cervical, Bilat w/sed 03/30/201401/24 HE #1 w/cath w/sed 01/21/1409/23 HE #3 w/cath w/sed 09/22/201305/26 HE #2 w/cath w/sed 06/09/1305/26 HE #1 w/cath w/sed 05/25/2013 History of tonsillectomy and adenoidectomy (~05/29/1949) History of total knee arthroplasty (~10/11/14) History of tubal ligation (~05/13/80) Family History Father Alcohol abuse Mother Alcohol abuse Arthritis Glaucoma CVA (cerebral vascular accident) Family/Other Arthritis Aunt Asthma Aunt Glaucoma Aunt Grandfather Malignant tumor of colon Paternal Grandmother Diabetes Paternal Son Hypercholesterolemia Social History household members: family education level: high school occupational status: retired 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 other: Children-3 alcohol intake frequency: a few times a week substance use type: does not use MEDS/ALLERGIES Home Medications and Allergies Home Medications Medication Instructions Recorded Confirmed Type cholecalciferol (vitamin D3) 125 5,000 unit PO QDAY 11/16/14 03/02/21 History mcg (5,000 unit) capsule conjugated estrogens 0.9 mg tablet 0.9 mg PO DAILY 11/16/14 03/02/21 History levothyroxine 75 mcg tablet 75 mcg PO DAILY 11/16/14 03/02/21 History losartan 100 1 tab PO DAILY 11/16/14 03/02/21 History mg-hydrochlorothiazide 25 mg tablet montelukast 10 mg tablet 10 mg PO QDAY 11/16/14 03/02/21 History jrwqqraz-rlmx-vfv-green tea ex 18 1 each PO QDAY 11/16/14 03/02/21 History mg-0.4 mg-27 mg tablet nabumetone 750 mg tablet 750 mg PO BIDCC 11/16/14 03/02/21 History omega-3 fatty acids-fish oil 340 1,000 mg PO DAILY 11/16/14 03/02/21 History mg-1,000 mg capsule pantoprazole 40 mg tablet,delayed 40 mg PO QDAY 11/16/14 03/02/21 History release verapamil 240 mg tablet,extended 240 mg PO HS 11/16/14 03/02/21 History release ascorbic acid (vitamin C) 500 mg 500 mg PO HS 11/10/15 03/02/21 History tablet magnesium oxide 400 mg PO QDAY 11/10/15 03/02/21 History calcium carbonate 500 mg calcium 1,000 mg PO HS 04/23/18 03/02/21 History (1,250 mg) tablet fluticasone 500 mcg-salmeterol 50 1 inh INH BID 04/23/18 03/02/21 History mcg/dose blistr powdr for inhalation fluticasone propionate 250 1 each INH BID 04/23/18 03/02/21 History mcg/actuation blister powder for inhalation potassium chloride 10 mEq 10 meq PO BIDCC 04/23/18 03/02/21 History tablet,extended release albuterol sulfate 90 mcg/actuation 2 puff INHALATION Q4H PRN g 11/21/18 03/02/21 History aerosol inhaler aspirin 325 mg tablet 325 mg PO QDAY 11/21/18 03/02/21 History atorvastatin 10 mg tablet 10 mg PO QHS 11/21/18 03/02/21 History clobetasol 0.05 % scalp solution 1 applic TOPICAL QDAY 11/21/18 03/02/21 History amlodipine 5 mg tablet 5 mg PO QDAY tab 12/10/18 03/02/21 History methocarbamol 750 mg tablet 750 mg PO TID tab 12/10/18 03/02/21 History hydrocodone 5 mg-acetaminophen 325 1 tab PO Q4H PRN #20 tab 04/25/20 03/02/21 Rx mg tablet hydrocodone 5 mg-acetaminophen 325 1 tab PO Q6H PRN #10 tab 10/04/20 03/02/21 Rx mg tablet hydrochlorothiazide 12.5 mg tablet 12.5 mg PO QAM #10 tab 10/07/20 03/02/21 Rx trazodone 300 mg tablet See Rx Instructions .ROUTE 01/31/21 03/02/21 Rx .COMPLEX #180 tab gabapentin 400 mg capsule 400 mg PO TID #1 cap 03/02/21 03/02/21 Rx duloxetine 20 mg capsule,delayed 40 mg PO QDAY #180 cap 04/17/21 Rx release prazosin 1 mg capsule See Rx Instructions .ROUTE 05/29/21 Rx .COMPLEX #90 cap Allergies Allergy/AdvReac Type Severity Reaction Status Date / Time latex Allergy Intermediate Blister Verified 10/10/21 08:24 naproxen Allergy Mild Blisters Verified 10/10/21 08:24 quinapril [From Accupril] Allergy Mild Cough Verified 10/10/21 08:24 ciprofloxacin [From Cipro] Allergy Unknown Vomiting Verified 10/10/21 08:24 metoclopramide [From Reglan] AdvReac Mild Shakiness Verified 10/10/21 08:24 niacin AdvReac Mild Chest Pain Verified 10/10/21 08:24 venlafaxine [From Effexor] AdvReac Mild Insomnia Verified 10/10/21 08:24 EXAM Constitutional Vitals: Temp Pulse Resp BP Pulse Ox 97.6 F 89 15 131/74 100 10/10/21 08:21 10/10/21 15:46 10/10/21 16:23 10/10/21 16:22 10/10/21 15:46 Exam: General: Alert, Awake, No acute Distress Eyes/N/T: Left eye esotropia Head/Neck: neck supple, normocephalic atraumatic CV: RRR, No murmurs, normal s1/s2 Pulm: Clear b/l, no wheezing/rhonchi/rales Abd: soft, nontender, +BS x4 Ext: no clubbing/cyanosis/edema Neuro: Alert, no focal deficits, moves all extremities, CN 2-12 grossly intact, symmetrical strength b/l upper/lower, sensations intact b/l upper/lower, no pronator drift, symmetrical face. Skin: warm/dry, multiple small wounds appear to be freshly picked scabs and healing wounds, some with surrounding erythema. DATA Data Completed and Pending Labs: Labs from last 24 hours 10/10/21 10/10/21 10/10/21 10:20 09:25 09:25 WBC RBC Hgb Hct MCV MCH MCHC RDW Plt Count MPV Neut % (Auto) Lymph % (Auto) Clay % (Auto) Eos % (Auto) Baso % (Auto) Lymph # (Auto) [place] # (Auto) Eos # (Auto) Baso # (Auto) Absolute Neutrophils VBG Lactic Acid 1.4 Sodium Potassium Chloride Carbon Dioxide Anion Gap BUN Creatinine GFR Calculation Glucose Calcium Total Bilirubin AST ALT Alkaline Phosphatase Ammonia 20 Total Protein Albumin Globulin Albumin/Globulin Ratio Urine Color Yellow Urine Appearance Cloudy A Urine pH 5.5 Ur Specific [place] 1.015 Urine Protein Negative Urine Glucose (UA) Negative Urine Ketones Negative Urine Occult Blood Negative Urine Nitrate Positive A Urine Bilirubin Negative Urine Urobilinogen 2.0 e.u./dl A Ur Leukocyte Esterase Large A Urine RBC 6 H Urine WBC > 182 H Ur Squamous Epith Cells 0 Urine Bacteria Many A Urine Mucus Many A Ur Culture Indicated? yes Ethyl Alcohol 10/10/21 10/10/21 10/10/21 09:00 09:00 09:00 WBC 6.6 RBC 4.13 Hgb 13.6 Hct 43.8 MCV 106.1 H MCH 32.9 MCHC 31.1 RDW 13.1 Plt Count 194 MPV 9.8 Neut % (Auto) 54.9 Lymph % (Auto) 29.7 Clay % (Auto) 13.7 H Eos % (Auto) 1.2 Baso % (Auto) 0.5 Lymph # (Auto) 1.95 Clay # (Auto) 0.90 Eos # (Auto) 0.08 Baso # (Auto) 0.03 Absolute Neutrophils 3.60 VBG Lactic Acid Sodium 135 Potassium 3.4 Chloride 102 Carbon Dioxide 16 L Anion Gap 17.0 H BUN 6 L Creatinine 0.7 GFR Calculation 85 Glucose 91 Calcium 8.8 Total Bilirubin 0.7 AST 35 H ALT 20 Alkaline Phosphatase 70 Ammonia Total Protein 6.5 Albumin 2.8 L Globulin 3.7 Albumin/Globulin Ratio 0.8 L Urine Color Urine Appearance Urine pH Ur Specific [place] Urine Protein Urine Glucose (UA) Urine Ketones Urine Occult Blood Urine Nitrate Urine Bilirubin Urine Urobilinogen Ur Leukocyte Esterase Urine RBC Urine WBC Ur Squamous Epith Cells Urine Bacteria Urine Mucus Ur Culture Indicated? Ethyl Alcohol < 0.010 A/P Narrative A/P Narrative: A: *UTI: *Encephalopathy: 2/2 above versus other *Generalized weakness: Unable to ambulate on her own *Left eye esotropia: *Multiple small wounds in varying stages of healing with appearance of cellulitis around some lesions: *Metabolic acidosis: *HTN/HLD: Poorly controlled blood pressure *Depression/anxiety: *Hypothyroidism: *GERD: *Macrocytosis: Secondary to alcohol versus other or nutritional deficiency *Asthma: P: -abx -MRI Brain -tele, monitor neurostatus -Pending UC/BC -Check TSH -check b12/folate -ciwa, vitamins -cont BP meds (clarify) -Monitor blood pressure, prn IV -Medication reconciliation -PT/OT -f/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
[2021-10-10 18:55] LABS: Thyroid Stimulating Hormone 4.76 uIU/mL (0.27-5.01)
[2021-10-10] MEDS ORDERED: 0.9 % SODIUM CHLORIDE 1,000 ML IV ONE (18:59)
[2021-10-10] MEDS ORDERED: ONDANSETRON 4 MG/2 ML VIAL IV PRN (18:59)
[2021-10-10] MEDS ORDERED: chlordiazePOXIDE 25 MG CAPSULE PO PRN (18:59)
[2021-10-10] MEDS ORDERED: POLYETHYLENE GLYCOL 3350 17 GM PACKET PO PRN (18:59)
[2021-10-10] MEDS ORDERED: SODIUM BICARBONATE 650 MG TABLET PO ONE (18:59)
[2021-10-10] MEDS ORDERED: cefTRIAXone 1 GM in DEXTROSE 5% IN WATER 50 ML IV SCH (18:59)
[2021-10-10] MEDS ORDERED: SENNOSIDES 1 TABLET PO PRN (18:59)
[2021-10-10] MEDS ORDERED: MAGNESIUM SULFATE 2 GM/50 ML BAG IV PRN (18:59)
[2021-10-10] MEDS ORDERED: LABETALOL 5 MG/ML ML IV PRN (18:59)
[2021-10-10] MEDS ORDERED: LORazepam 2 MG/ML VIAL IV PRN (18:59)
[2021-10-10] MEDS ORDERED: POTASSIUM CHLORIDE 40 MEQ in DEXTROSE 5% IN WATER 500 ML IV PRN (18:59)
[2021-10-10] MEDS ORDERED: IPRATROPIUM/ALBUTEROL 3 ML AMPUL.NEB NEB PRN (18:59)
[2021-10-10] MEDS ORDERED: POTASSIUM CHLORIDE 20 MEQ TABLET PO PRN ×2 (18:59)
[2021-10-10] MEDS ORDERED: THIAMINE 100 MG/ML VIAL ONE (20:35)
[2021-10-10] MEDS: FOLIC ACID 1 MG TABLET PO SCH (20:51)
[2021-10-10] MEDS: THIAMINE 100 MG in 0.9 % SODIUM CHLORIDE 50 ML IV SCH (20:51)
[2021-10-10] MEDS: DOCUSATE SODIUM 100 MG CAPSULE PO SCH (20:51)
[2021-10-10] MEDS: 0.9 % SODIUM CHLORIDE 10 ML SYRINGE IV SCH ×2 (22:08→22:34)
[2021-10-10] MEDS: DOXYCYCLINE 100 MG in DEXTROSE 5% IN WATER 100 ML IV SCH (22:35)
[2021-10-10] MEDS: ACETAMINOPHEN 325 MG TABLET PO PRN (22:56)
[2021-10-11] MEDS: 0.9 % SODIUM CHLORIDE 10 ML SYRINGE IV SCH ×6 (05:01→22:17)
[2021-10-11 06:33] LABS: Basophils # (Auto) 0.03 K/mcL (0.00-0.30); Basophils % (Auto) 0.5 % (0.0-2.0); Eosinophils # (Auto) 0.08 K/mcL (0.00-0.70); Eosinophils % (Auto) 1.4 % (0.0-7.0); Hemoglobin 11.8 g/dL (11.2-15.7); Lymphocytes # (Auto) 1.16 K/mcL (1.50-4.80); Lymphocytes % (Auto) 19.7 % (15.5-49.0); Mean Cell Volume 102.9 fL (80.0-100.0); Mean Corpuscular HGB Conc 32.8 g/dL (31.0-36.0); Mean Platelet Volume 9.8 fL (7.4-10.4); Monocytes # (Auto) 0.79 K/mcL (0.10-0.90); Monocytes % (Auto) 13.4 % (1.0-12.0); Platelet Count 195 K/mcL (140-440); WBC 5.9 K/mcL (4.5-11.0)
[2021-10-11 06:56] LABS: ALT/SGPT 17 U/L (<40); AST/SGOT 27 U/L (<32); Albumin 2.6 gm/dL (3.2-5.2); Albumin/Globulin Ratio 0.9 (1.0-2.3); Alkaline Phosphatase 61 U/L (39-117); Bilirubin,Direct 0.3 mg/dL (<0.3); Bilirubin,Total 0.6 mg/dL (0.1-1.0); Blood Urea Nitrogen 5 mg/dL (8-23); Calcium 8.1 mg/dL (8.6-10.4); Carbon Dioxide 19 mmol/L (22-30); Chloride 105 mmol/L (96-108); Glomerular Filtration Rate 89; Glucose 85 mg/dL (70-105); Lactate Dehydrogenase 158 U/L (135-225); Phosphorous 3.3 mg/dL (2.5-4.5); Triglycerides 82 mg/dL (<150); Uric Acid 6.6 mg/dL (2.5-8.0)
[2021-10-11] MEDS: MULTIVIT,THER IRON,CA,FA & MIN 1 TABLET PO SCH (07:30)
[2021-10-11] MEDS: PANTOPRAZOLE 40 MG TABLET PO SCH (07:30)
[2021-10-11] MEDS: DOCUSATE SODIUM 100 MG CAPSULE PO SCH ×2 (07:30→22:15)
[2021-10-11] MEDS: FOLIC ACID 1 MG TABLET PO SCH (07:31)
[2021-10-11] MEDS: ENOXAPARIN 40 MG/0.4 ML SYRINGE SQ SCH (07:31)
[2021-10-11] MEDS ORDERED: THIAMINE 100 MG/ML VIAL ONE (07:32)
--- NOTE | 2021-10-11 07:48 | Internal Med Progress Note ---
SUBJECTIVE Subjective Patient information: Note initiated : 10/11/21 at 7:42 am Service Date, if different from initiated Date: [] Patient: Jacinda Fields 75 y/o F admitted on 10/10/21 for weakness, vision change. Chief Complaint: [] Interval history: History of present illness: Ms. Fields is a 75 year old F Presents the ED with generalized weakness poor appetite and left eye problems. Poor ambulation. She seemed mildly confused on what presentation ED. She also presented with esotropia of the left eye. Case was discussed with Dr. Santoro who considered stroke. CT brain was negative for any acute process but did show cerebral atrophy with enlarged ventricles and small vessel ischemic changes. Patient to follow-up with Dr. Santoro. Patient says she had surgery a year ago because of eye issues on the left eye and now she says she is having the same problem. Patient's urinalysis with nitrites and leukocyte esterase. Patient denies dysuria but does note dark urine and malodorous urine. CBC is unremarkable except for macrocytosis. Chemistry panel unremarkable except for low albumin and acidosis. Patient too weak to walk in the ED. Also noted to have multiple wounds on her body. When asked about that she says she is picks at her scabs. Asked how she got them she does not know she says maybe she bumped against this or that and that she has dogs. Denies fevers or chills. She lives at home with her and son. She does admit to feeling some confusion. Patient denies smoking or drug use. She does drink 3 beers a day and no more. 10/11 Patient quite anxious this morning and received IV Ativan, patient sleeping. Monitor closely given the sedation and monitor pulse ox closely. Elevated head of bed. Awaiting urine culture. Low folate level order methylmalonic colonic acid and homocystine. Review of system: Unable to obtain given sedation Constitutional Vitals: Vital Signs Temp Pulse Resp BP Pulse Ox 97.9 F 92 H 20 127/88 95 10/11/21 03:48 10/11/21 03:48 10/11/21 03:48 10/11/21 03:48 10/11/21 03:48 Period Temp Pulse Resp BP Sys/Fields Pulse Ox Last 24 Hr 97.6 F-97.9 F 69-97 10-28 111-169/60-124 93-100 Intake and Output 10/10/21 10/11/21 10/11/21 21:59 05:59 13:59 Intake Total 51 500 Output Total 251 Balance 51 249 Weight 68.039 kg Intake & Output: Intake & Output 10/10/21 10/11/21 10/11/21 21:59 05:59 13:59 Intake Total 51 500 Output Total 251 Balance 51 249 Weight 68.039 kg Intake: IV 51 100 Vibramycin 100 mg In Dextrose 5 100 % in Water 100 ml @ 100 mls/hr IV Q12H [facility] Rx#:[id number] Vitamin B1 100 mg In Sodium 51 Chloride 0.9% 50 ml @ 50 mls/hr IV DAILY [facility] Rx#:[id number] Oral 400 Output: Void Amount 250 # of times incontinent of urine 1 Other: Urine Appearance Sediment Urine Color Dark Yellow Stool Size Large Stool Color Brown Yellow Stool Consistency Liquid Watery # Voids 0 # Bowel Movements 0 # of times incontinent of 0 Bowels Exam: General: Sedated medication, No acute Distress Eyes/N/T: Left eye esotropia Head/Neck: neck supple, CV: RRR, No murmurs, Pulm: Clear b/l, no wheezing/rhonchi/rales Abd: soft, nontender, +BS x4 Ext: no clubbing/cyanosis/edema Neuro: Sedated from medication, unable to thoroughly assess Skin: warm/dry, multiple small wounds appear to be freshly picked scabs and healing wounds, some with surrounding erythema. OBJ DATA Labs CBC & Chem 7: 10/11/21 05:31 10/11/21 05:31 Labs: Abnormal Lab Results 10/11/21 10/11/21 10/10/21 05:31 05:31 10:20 RBC 3.50 L MCV 102.9 H [place] % (Auto) 13.4 H Lymph # (Auto) 1.16 L Carbon Dioxide 19 L Anion Gap BUN 5 L Calcium 8.1 L Direct Bilirubin 0.3 H GGT 69 H AST Total Protein 5.6 L Albumin 2.6 L Albumin/Globulin Ratio 0.9 L Urine Appearance Cloudy A Urine Nitrate Positive A Urine Urobilinogen 2.0 e.u./dl A Ur Leukocyte Esterase Large A Urine RBC 6 H Urine WBC > 182 H Urine Bacteria Many A Urine Mucus Many A 10/10/21 10/10/21 09:00 09:00 RBC MCV 106.1 H [place] % (Auto) 13.7 H Lymph # (Auto) Carbon Dioxide 16 L Anion Gap 17.0 H BUN 6 L Calcium Direct Bilirubin GGT AST 35 H Total Protein Albumin 2.8 L Albumin/Globulin Ratio 0.8 L Urine Appearance Urine Nitrate Urine Urobilinogen Ur Leukocyte Esterase Urine RBC Urine WBC Urine Bacteria Urine Mucus Meds: Medications Acetaminophen (Acetaminophen 325 Mg Tablet) 650 mg PO Q6HP PRN; Protocol PRN Reason: Per Pain Protocol/Fever > 101 Last Admin: 10/10/21 22:56 Dose: 650 mg Documented by: Albuterol/Ipratropium (Ipratropium/Albuterol 3 Ml Ampul.Neb) 3 ml NEB Q4HP PRN PRN Reason: Shortness Of Breath Ceftriaxone Sodium (Ceftriaxone 1 Gm Vial) 1 gm IV Q24H [facility] Chlordiazepoxide HCl (Chlordiazepoxide 25 Mg Capsule) 25 mg PO Q4HP PRN PRN Reason: Alcohol Withdrawal Docusate Sodium (Docusate Sodium 100 Mg Capsule) 100 mg PO BID [facility] Last Admin: 10/11/21 07:30 Dose: 100 mg Documented by: Enoxaparin Sodium (Enoxaparin 40 Mg/0.4 Ml Syringe) 40 mg SQ DAILY [facility] Last Admin: 10/11/21 07:31 Dose: 40 mg Documented by: Folic Acid (Folic Acid 1 Mg Tablet) 1 mg PO DAILY [facility] Last Admin: 10/11/21 07:31 Dose: 1 mg Documented by: Potassium Chloride 40 meq/ (Dextrose) 520 mls @ 130 mls/hr IV UD PRN PRN Reason: Potassium < 3 Magnesium Sulfate (Magnesium Sulfate) 2 gm in 50 mls @ 50 mls/hr IV UD PRN PRN Reason: Magnesium </= 1.6 Doxycycline Hyclate 100 mg/ (Dextrose) 100 mls @ 100 mls/hr IV Q12H [facility]; Protocol Last Infusion: 10/10/21 23:35 Dose: Infused Documented by: Thiamine HCl 100 mg/ Sodium (Chloride) 51 mls @ 50 mls/hr IV DAILY [facility] Last Infusion: 10/10/21 21:54 Dose: Infused Documented by: Iron Carb/Multivit/Be[place] Trapper/Folic Acid (Multivit,Ther Iron,Ca,Fa & Min 1 Tablet) 1 tab PO DAILY [facility] Last Admin: 10/11/21 07:30 Dose: 1 tab Documented by: Labetalol HCl (Labetalol 5 Mg/Ml Ml) 0 mg IV Q2HP PRN PRN Reason: Hypertension Lorazepam (Lorazepam 2 Mg/Ml Vial) 0 mg IV Q4HP PRN; Protocol PRN Reason: Alcohol Withdrawal Ondansetron HCl (Ondansetron 4 Mg/2 Ml Vial) 4 mg IV Q4HP PRN PRN Reason: Nausea And Vomiting Pantoprazole Sodium (Pantoprazole 40 Mg Tablet) 40 mg PO QAMAC [facility] Last Admin: 10/11/21 07:30 Dose: 40 mg Documented by: Polyethylene Glycol (Polyethylene Glycol 3350 17 Gm Packet) 17 gm PO DAILYP PRN PRN Reason: Constipation Potassium Chloride (Potassium Chloride 20 Meq Tablet) 40 meq PO UD PRN PRN Reason: Potssium is 3-3.5 Last Admin: 10/10/21 20:51 Dose: 40 meq Documented by: Potassium Chloride (Potassium Chloride 20 Meq Tablet) 40 meq PO UD PRN PRN Reason: Potassium < 3 Senna (Sennosides 1 Tablet) 2 tab PO DAILYP PRN PRN Reason: Constipation Sodium Chloride (0.9 % Sodium Chloride 10 Ml Syringe) 10 ml IV Q8 [facility] Last Admin: 10/11/21 05:01 Dose: Not Given Documented by: Sodium Chloride (0.9 % Sodium Chloride 10 Ml Syringe) 10 ml IV Q8 [facility] Last Admin: 10/11/21 05:01 Dose: Not Given Documented by: A/P Narrative A/P Narrative: A: *UTI: *Encephalopathy: 2/2 above versus other, suspect underlying MCI vs mild dementia *early Dementia vs MCI: -CT brain with cerebral atrophy and chronic ischemic changes *Generalized weakness: Unable to ambulate on her own *Left eye esotropia: -CT brain no acute, unable to perform MRI d/t spine stimulator *Multiple small wounds in varying stages of healing with appearance of cellulitis around some lesions: *Metabolic acidosis: *HTN/HLD: Poorly controlled blood pressure *Depression/anxiety: *Hypothyroidism: tsh wnl *GERD: *Macrocytosis: Secondary to likely alcohol, b12 ok, folate low *Asthma: P: -abx -tele, monitor neurostatus -Pending UC/BC -eye patch per Ophthal -check MMA/homocysteine, folate supp until return -ciwa, vitamins -restart norvasc/ARB, hold verapamil & Monitor blood pressure -cont ASA/statin -PT/OT -f/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
[2021-10-11] MEDS ORDERED: CALCIUM CARBONATE 500 MG TAB.CHEW PO PRN (07:59)
[2021-10-11] MEDS: GABAPENTIN 400 MG CAPSULE PO SCH ×3 (08:42→22:16)
[2021-10-11] MEDS: ASPIRIN 81 MG TAB.CHEW PO SCH (08:42)
[2021-10-11] MEDS: METHOCARBAMOL 750 MG TABLET PO SCH ×3 (08:43→22:16)
[2021-10-11] MEDS: FLUTICASONE/SALMETEROL 500/50 INHALER #14 INH SCH ×3 (08:45→23:25)
[2021-10-11] MEDS: cefTRIAXone 1 GM VIAL IV SCH (08:45)
[2021-10-11] MEDS: THIAMINE 100 MG in 0.9 % SODIUM CHLORIDE 50 ML IV SCH (08:50)
[2021-10-11] MEDS: LEVOTHYROXINE 75 MCG TABLET PO SCH (08:51)
[2021-10-11] MEDS ORDERED: amLODIPine 5 MG TABLET PO SCH (09:00)
[2021-10-11] MEDS ORDERED: HYDROCHLOROTHIAZIDE 25 MG TABLET PO SCH (09:00)
[2021-10-11] MEDS ORDERED: LOSARTAN 25 MG TABLET PO SCH (09:00)
[2021-10-11] MEDS ORDERED: LOSARTAN/HCTZ 100/25 TABLET PO SCH (09:00)
[2021-10-11] MEDS ORDERED: LOSARTAN 50 MG TABLET PO SCH (09:00)
[2021-10-11] MEDS: SODIUM BICARBONATE 650 MG TABLET PO SCH ×2 (09:56→23:06)
[2021-10-11] MEDS: DULoxetine 20 MG CAPSULE PO SCH (09:57)
[2021-10-11] MEDS: ESTROGENS, CONJUGATED 0.9 MG TABLET PO SCH (09:58)
[2021-10-11] MEDS: DOXYCYCLINE 100 MG in DEXTROSE 5% IN WATER 100 ML IV SCH ×2 (10:32→22:16)
[2021-10-11] MEDS ORDERED: hydrOXYzine 25 MG TABLET PO PRN (11:02)
--- NOTE | 2021-10-11 16:54 | XRay Report ---
INDICATION: rule out hardware for possible MRI TECHNIQUE: Supine abdomen. COMPARISON: None FINDINGS:Bowel gas pattern is unremarkable. No evidence for mechanical small bowel obstruction. There is no pneumatosis. No biliary or portal venous gas. Previous right total hip arthroplasty Patient has undergone previous posterior spinal fusion at L4-5. There is a disc spacer at this level. There is a metallic density at the L3-4 level which may be secondary to previous ALIF No other focal abnormality IMPRESSION: Unremarkable and nonobstructive bowel gas pattern Interpreted and Authenticated by: Oskar Tim 10/11/21
--- NOTE | 2021-10-11 18:54 | Magnetic Resonance Report ---
INDICATION: r/o stroke TECHNIQUE: Sagittal T1-weighted images. Axial T2 FLAIR images, diffusion weighted images with ADC map COMPARISON: Previous CT scan dated 10/10/2021 FINDINGS: No restricted diffusion. No acute infarction. There is cerebral atrophy. There is white matter abnormality consistent with small vessel ischemic change. No acute intra-axial abnormality. No localized mass effect. Brainstem and cerebellum are negative. No extra-axial, intracranial abnormality IMPRESSION: 1. No acute infarction. 2. Cerebral atrophy. 3. White matter abnormality consistent with small vessel ischemic change Interpreted and Authenticated by: Oskar Tim 10/11/21
[2021-10-11] MEDS ORDERED: PRAZOSIN 1 MG CAPSULE PO SCH (21:00)
[2021-10-11] MEDS: NABUMETONE 500 MG TABLET PO SCH (22:14)
[2021-10-11] MEDS: MONTELUKAST 10 MG TABLET PO SCH (22:16)
[2021-10-11] MEDS: ATORVASTATIN 10 MG TABLET PO SCH (22:16)
[2021-10-11] MEDS: traZODone HCL 150 MG TABLET PO SCH ×2 (22:17→23:23)
[2021-10-12] MEDS ORDERED: LACTATED RINGERS 1,000 ML IV ONE ×3 (03:44→06:25)
[2021-10-12] MEDS: 0.9 % SODIUM CHLORIDE 10 ML SYRINGE IV SCH ×3 (05:41→21:05)
[2021-10-12] MEDS ORDERED: HALOPERIDOL LACTATE 5 MG/ML VIAL IV PRN (07:44)
--- NOTE | 2021-10-12 07:47 | Internal Med Progress Note ---
SUBJECTIVE Subjective Patient information: Note initiated : 10/12/21 at 7:38 am Service Date, if different from initiated Date: [] Patient: Jacinda Fields 75 y/o F admitted on 10/10/21 for weakness, vision change. Chief Complaint: [] Interval history: History of present illness: Ms. Fields is a 75 year old F Presents the ED with generalized weakness poor appetite and left eye problems. Poor ambulation. She seemed mildly confused on what presentation ED. She also presented with esotropia of the left eye. Case was discussed with Dr. Santoro who considered stroke. CT brain was negative for any acute process but did show cerebral atrophy with enlarged ventricles and small vessel ischemic changes. Patient to follow-up with Dr. Santoro. Patient says she had surgery a year ago because of eye issues on the left eye and now she says she is having the same problem. Patient's urinalysis with nitrites and leukocyte esterase. Patient denies dysuria but does note dark urine and malodorous urine. CBC is unremarkable except for macrocytosis. Chemistry panel unremarkable except for low albumin and acidosis. Patient too weak to walk in the ED. Also noted to have multiple wounds on her body. When asked about that she says she is picks at her scabs. Asked how she got them she does not know she says maybe she bumped against this or that and that she has dogs. Denies fevers or chills. She lives at home with her and son. She does admit to feeling some confusion. Patient denies smoking or drug use. She does drink 3 beers a day and no more. 10/11 Patient quite anxious this morning and received IV Ativan, patient sleeping. Monitor closely given the sedation and monitor pulse ox closely. Elevated head of bed. Awaiting urine culture. Low folate level order methylmalonic colonic acid and homocystine. 10/12 Patient became hypotensive early this morning, was given 2 L lactated ringer bolus with some improvement but still hypotensive. Another liter was given patient still mildly hypotensive patient then transferred to ICU where Levophed was going to be started but blood pressure came up. At another point it dropped while she was sleeping but when she woke up she came back up and maintained. Etiology undetermined, suspect secondary to medications. She is on antibiotics for the past couple days. Her blood pressure medications were started yesterday which could be contributing that was all stopped. Did get some Librium for CIWA last night. Urine culture with gram-negative bacillus pending final identity. Patient sleeping but arousable. Patient feels tired and has some chills but otherwise no new complaints no pain no fevers. Review of Systems: denies headache/fever/chills/nausea/vomiting/chest or abdominal pain/cough/dyspnea/diarrhea. Otherwise see above. Constitutional Vitals: Vital Signs Temp Pulse Resp BP Pulse Ox 96.8 F L 70 12 80/42 93 10/12/21 03:22 10/12/21 05:46 10/12/21 05:46 10/12/21 05:46 10/12/21 05:46 Period Temp Pulse Resp BP Sys/Fields Pulse Ox Last 24 Hr 96.8 F-97.5 F 70-94 12-20 60-127/36-79 90-100 Intake and Output 10/11/21 10/12/21 10/12/21 21:59 05:59 13:59 Intake Total 2266 Output Total 300 100 Balance -300 2166 Weight 60.872 kg Intake & Output: Intake & Output 10/11/21 10/12/21 10/12/21 21:59 05:59 13:59 Intake Total 2266 Output Total 300 100 Balance -300 2166 Weight 60.872 kg Intake: IV 2065 Vibramycin 100 mg In Dextrose 5 100 % in Water 100 ml @ 100 mls/hr IV Q12H JESENIA Rx#:[id number] Lactated Ringers 1,000 ml @ 1966 Wide Open IV BOLUS ONE Rx#: [id number] Oral 200 Output: Void Amount 300 100 Other: Meal Nourishment/Supplement Percent of Meal Consumed 100% Feeding Ability Independent Nourishment/Supplement name potatoe chips, ice cream, pudding Urine Appearance Clear Uretheral (Vinson) Clear Urine Color Dark Yellow Uretheral (Vinson) Dark Yellow Exam: General: Sedated medication, No acute Distress Eyes/N/T: Left eye esotropia Head/Neck: neck supple, CV: RRR, 2/6 SM, Pulm: Clear b/l, no wheezing/rhonchi/rales Abd: soft, nontender, +BS x4 Ext: no clubbing/cyanosis/edema Neuro: Sedated from medication, unable to thoroughly assess Skin: warm/dry, multiple small wounds appear to be freshly picked scabs and healing wounds, some with surrounding erythema. OBJ DATA Labs CBC & Chem 7: 10/11/21 05:31 10/12/21 06:03 Labs: Abnormal Lab Results 10/11/21 10/11/21 10/10/21 05:31 05:31 10:20 RBC 3.50 L MCV 102.9 H [place] % (Auto) 13.4 H Lymph # (Auto) 1.16 L Carbon Dioxide 19 L Anion Gap BUN 5 L Calcium 8.1 L Direct Bilirubin 0.3 H GGT 69 H AST Total Protein 5.6 L Albumin 2.6 L Albumin/Globulin Ratio 0.9 L Urine Appearance Cloudy A Urine Nitrate Positive A Urine Urobilinogen 2.0 e.u./dl A Ur Leukocyte Esterase Large A Urine RBC 6 H Urine WBC > 182 H Urine Bacteria Many A Urine Mucus Many A 10/10/21 10/10/21 09:00 09:00 RBC MCV 106.1 H [place] % (Auto) 13.7 H Lymph # (Auto) Carbon Dioxide 16 L Anion Gap 17.0 H BUN 6 L Calcium Direct Bilirubin GGT AST 35 H Total Protein Albumin 2.8 L Albumin/Globulin Ratio 0.8 L Urine Appearance Urine Nitrate Urine Urobilinogen Ur Leukocyte Esterase Urine RBC Urine WBC Urine Bacteria Urine Mucus Meds: Medications Acetaminophen (Acetaminophen 325 Mg Tablet) 650 mg PO Q6HP PRN; Protocol PRN Reason: Per Pain Protocol/Fever > 101 Last Admin: 10/10/21 22:56 Dose: 650 mg Documented by: Albuterol/Ipratropium (Ipratropium/Albuterol 3 Ml Ampul.Neb) 3 ml NEB Q4HP PRN PRN Reason: Shortness Of Breath Aspirin (Aspirin 81 Mg Tab.Chew) 81 mg PO DAILY [facility] Last Admin: 10/11/21 08:42 Dose: 81 mg Documented by: Atorvastatin Calcium (Atorvastatin 10 Mg Tablet) 10 mg PO HS [facility] Last Admin: 10/11/21 22:16 Dose: 10 mg Documented by: Calcium Carbonate/Glycine (Calcium Carbonate 500 Mg Tab.Chew) 1,000 mg PO HSP PRN PRN Reason: Heartburn Ceftriaxone Sodium (Ceftriaxone 1 Gm Vial) 1 gm IV Q24H [facility] Last Admin: 10/11/21 08:45 Dose: 1 gm Documented by: Docusate Sodium (Docusate Sodium 100 Mg Capsule) 100 mg PO BID [facility] Last Admin: 10/11/21 22:15 Dose: 100 mg Documented by: Duloxetine HCl (Duloxetine 20 Mg Capsule) 40 mg PO QDAY [facility] Last Admin: 10/11/21 09:57 Dose: 40 mg Documented by: Enoxaparin Sodium (Enoxaparin 40 Mg/0.4 Ml Syringe) 40 mg SQ DAILY [facility] Last Admin: 10/11/21 07:31 Dose: 40 mg Documented by: Estrogens Conjugated (Estrogens, Conjugated 0.9 Mg Tablet) 0.9 mg PO DAILY [facility] Last Admin: 10/11/21 09:58 Dose: Not Given Documented by: Folic Acid (Folic Acid 1 Mg Tablet) 1 mg PO DAILY [facility] Last Admin: 10/11/21 07:31 Dose: 1 mg Documented by: Gabapentin (Gabapentin 400 Mg Capsule) 400 mg PO TID [facility] Last Admin: 10/11/21 22:16 Dose: 400 mg Documented by: Hydroxyzine HCl (Hydroxyzine 25 Mg Tablet) 50 mg PO TIDP PRN PRN Reason: Anxiety Potassium Chloride 40 meq/ (Dextrose) 520 mls @ 130 mls/hr IV UD PRN PRN Reason: Potassium < 3 Magnesium Sulfate (Magnesium Sulfate) 2 gm in 50 mls @ 50 mls/hr IV UD PRN PRN Reason: Magnesium </= 1.6 Doxycycline Hyclate 100 mg/ (Dextrose) 100 mls @ 100 mls/hr IV Q12H [facility]; Protocol Last Infusion: 10/11/21 23:26 Dose: Infused Documented by: Thiamine HCl 100 mg/ Sodium (Chloride) 51 mls @ 50 mls/hr IV DAILY [facility] Last Admin: 10/11/21 08:50 Dose: Not Given Documented by: Iron Carb/Multivit/Converse/Folic Acid (Multivit,Ther Iron,Ca,Fa & Min 1 Tablet) 1 tab PO DAILY [facility] Last Admin: 10/11/21 07:30 Dose: 1 tab Documented by: Labetalol HCl (Labetalol 5 Mg/Ml Ml) 0 mg IV Q2HP PRN PRN Reason: Hypertension Levothyroxine Sodium (Levothyroxine 75 Mcg Tablet) 75 mcg PO QAMAC [facility] Last Admin: 10/11/21 08:51 Dose: Not Given Documented by: Methocarbamol (Methocarbamol 750 Mg Tablet) 750 mg PO TID [facility] Last Admin: 10/11/21 22:16 Dose: 750 mg Documented by: Montelukast Sodium (Montelukast 10 Mg Tablet) 10 mg PO QHS [facility] Last Admin: 10/11/21 22:16 Dose: 10 mg Documented by: Nabumetone (Nabumetone 500 Mg Tablet) 750 mg PO BIDCC [facility]; Protocol Last Admin: 10/11/21 22:14 Dose: 750 mg Documented by: Ondansetron HCl (Ondansetron 4 Mg/2 Ml Vial) 4 mg IV Q4HP PRN PRN Reason: Nausea And Vomiting Pantoprazole Sodium (Pantoprazole 40 Mg Tablet) 40 mg PO QAMAC [facility] Last Admin: 10/11/21 07:30 Dose: 40 mg Documented by: Polyethylene Glycol (Polyethylene Glycol 3350 17 Gm Packet) 17 gm PO DAILYP PRN PRN Reason: Constipation Potassium Chloride (Potassium Chloride 20 Meq Tablet) 40 meq PO UD PRN PRN Reason: Potssium is 3-3.5 Last Admin: 10/10/21 20:51 Dose: 40 meq Documented by: Potassium Chloride (Potassium Chloride 20 Meq Tablet) 40 meq PO UD PRN PRN Reason: Potassium < 3 Fluticasone/Salmeterol (Fluticasone/Salmeterol 500/50 Inhaler #14) 1 puff INH BID [facility] Last Admin: 10/11/21 23:25 Dose: 1 puff Documented by: Senna (Sennosides 1 Tablet) 2 tab PO DAILYP PRN PRN Reason: Constipation Sodium Chloride (0.9 % Sodium Chloride 10 Ml Syringe) 10 ml IV Q8 [facility] Last Admin: 10/12/21 05:41 Dose: Not Given Documented by: Trazodone HCl (Trazodone Hcl 150 Mg Tablet) 300 mg PO HS [facility] Last Admin: 10/11/21 23:23 Dose: 300 mg Documented by: A/P Narrative A/P Narrative: A: *UTI (GNB): *Hypotension: ?etiology, suspect med induced vs other *Encephalopathy: 2/2 above versus other, suspect underlying MCI vs mild dementia *early Dementia vs MCI: -CT brain with cerebral atrophy and chronic ischemic changes *Left eye esotropia: -CT brain no acute, unable to perform MRI d/t spine stimulator -MRI on acute pathology *Generalized weakness: Unable to ambulate on her own *Multiple small wounds in varying stages of healing with appearance of cellulitis around some lesions: *Metabolic acidosis: *HTN/HLD: Poorly controlled blood pressure *Depression/anxiety: *Hypothyroidism: tsh wnl *GERD: *Macrocytosis: Secondary to likely alcohol, b12 ok, folate low *Asthma: *Alcohol use: states 3 beers/day P: -Rocephin/Doxy -Pending UC/BC -echo for hypotension, ekg -eye patch per Ophthal -check MMA/homocysteine, folate supp until return -ciwa, vitamins -hold BP meds> norvasc/ARB/verapamil & Monitor blood pressure -Hold any sedating meds including her home Robaxin and linda -cont ASA/statin -PT/OT -f/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
[2021-10-12] MEDS: cefTRIAXone 1 GM VIAL IV SCH (09:14)
[2021-10-12] MEDS: DOXYCYCLINE 100 MG in DEXTROSE 5% IN WATER 100 ML IV SCH ×2 (10:02→21:04)
[2021-10-12] MEDS: NOREPINEPHRINE BITARTRATE 8 MG in 0.9 % SODIUM CHLORIDE 242 ML IV SCH (10:29)
[2021-10-12 10:57] LABS: Blood Urea Nitrogen 7 mg/dL (8-23); Calcium 7.7 mg/dL (8.6-10.4); Carbon Dioxide 21 mmol/L (22-30); Chloride 106 mmol/L (96-108); Glomerular Filtration Rate 89; Glucose 99 mg/dL (70-105)
[2021-10-12] MEDS: ENOXAPARIN 40 MG/0.4 ML SYRINGE SQ SCH (10:59)
[2021-10-12] MEDS: ASPIRIN 81 MG TAB.CHEW PO SCH (10:59)
[2021-10-12] MEDS: MULTIVIT,THER IRON,CA,FA & MIN 1 TABLET PO SCH (10:59)
[2021-10-12] MEDS: PANTOPRAZOLE 40 MG TABLET PO SCH (10:59)
[2021-10-12] MEDS: FOLIC ACID 1 MG TABLET PO SCH (10:59)
[2021-10-12] MEDS: DOCUSATE SODIUM 100 MG CAPSULE PO SCH ×2 (10:59→21:04)
[2021-10-12] MEDS: DULoxetine 20 MG CAPSULE PO SCH (11:00)
[2021-10-12] MEDS: THIAMINE 100 MG in 0.9 % SODIUM CHLORIDE 50 ML IV SCH (11:01)
[2021-10-12] MEDS: 0.9 % SODIUM CHLORIDE 250 ML IV SCH ×2 (11:06→22:15)
[2021-10-12] MEDS: LEVOTHYROXINE 75 MCG TABLET PO SCH (11:10)
[2021-10-12] MEDS: NABUMETONE 500 MG TABLET PO SCH ×2 (11:11→17:10)
[2021-10-12] MEDS: METHOCARBAMOL 750 MG TABLET PO SCH (11:13)
[2021-10-12] MEDS: GABAPENTIN 400 MG CAPSULE PO SCH (11:13)
[2021-10-12 11:15] LABS: Basophils # (Auto) 0.02 K/mcL (0.00-0.30); Basophils % (Auto) 0.6 % (0.0-2.0); Eosinophils # (Auto) 0.06 K/mcL (0.00-0.70); Eosinophils % (Auto) 1.9 % (0.0-7.0); Hematocrit 31.6 % (34.1-44.9); Hemoglobin 9.9 g/dL (11.2-15.7); Lymphocytes # (Auto) 1.13 K/mcL (1.50-4.80); Mean Cell Volume 104.3 fL (80.0-100.0); Mean Corpuscular HGB Conc 31.3 g/dL (31.0-36.0); Mean Platelet Volume 10.6 fL (7.4-10.4); Monocytes # (Auto) 0.47 K/mcL (0.10-0.90); Monocytes % (Auto) 14.6 % (1.0-12.0); Neutrophils % (Auto) 47.9 % (38.0-78.0); Platelet Count 160 K/mcL (140-440); RBC 3.03 M/mcL (3.59-5.38); WBC 3.2 K/mcL (4.5-11.0)
[2021-10-12 11:32] LABS: Homocysteine 13.8 umol/L (<10.4)
[2021-10-12] MEDS: ESTROGENS, CONJUGATED 0.9 MG TABLET PO SCH (11:34)
[2021-10-12] MEDS: FLUTICASONE/SALMETEROL 500/50 INHALER #14 INH SCH ×2 (11:35→21:04)
[2021-10-12] MEDS ORDERED: PHENobarb/HYOSCY/ATROPINE/SCOP 1 DOSE BOTTLE PO ONE ×2 (11:43→12:10)
[2021-10-12] MEDS: GABAPENTIN 100 MG CAPSULE PO SCH ×2 (17:10→21:04)
[2021-10-12] MEDS: 0.9 % SODIUM CHLORIDE 1,000 ML IV SCH (18:35)
[2021-10-12] MEDS: ATORVASTATIN 10 MG TABLET PO SCH (21:04)
[2021-10-12] MEDS: MONTELUKAST 10 MG TABLET PO SCH (21:04)
[2021-10-12] MEDS ORDERED: ALBUMIN HUMAN 12.5 GM/50 ML BAG IV ONE (22:35)
[2021-10-12] MEDS ORDERED: LACTATED RINGERS 250 ML IV ONE (22:43)
[2021-10-12] MEDS ORDERED: ALBUMIN HUMAN 50 ML IV ONE (22:54)
[2021-10-13] MEDS: NOREPINEPHRINE BITARTRATE 8 MG in 0.9 % SODIUM CHLORIDE 242 ML IV SCH (00:40)
[2021-10-13] MEDS: 0.9 % SODIUM CHLORIDE 1,000 ML IV SCH (04:11)
[2021-10-13] MEDS: 0.9 % SODIUM CHLORIDE 10 ML SYRINGE IV SCH ×3 (05:59→20:49)
[2021-10-13] MEDS ORDERED: COSYNTROPIN 0.25 MG VIAL IV ONE (06:00)
--- NOTE | 2021-10-13 07:00 | EKG ---
[facility] Test Date: 2021-10-10 Pat Name: Jacinda Fields Department: ED Room: Gender: Female Dye Penetrant Testing Technician: : 1945 Requested By: Wesly Mccoy Order Number: [id number] Reading MD: Jaylan Cordon Measurements Intervals [place] Rate: 89 P: 22 NE: 157 QRS: -29 QRSD: 93 T: 23 QT: 403 QTc: 491 Interpretive Statements Sinus rhythm Electronically Signed On 10-13-2021 6:59:45 PDT by Jaylan Cordon /store/M0/[id number]
--- NOTE | 2021-10-13 07:03 | EKG ---
[facility] Test Date: 2021-10-11 Pat Name: Jacinda Fields Department: [facility] Room: 112 Gender: Female Clinical Pharmacologist: : 1945 Requested By: Josue Jarquin Order Number: [id number] Reading MD: Jaylan Cordon Measurements Intervals [place] Rate: 91 P: 27 IA: 130 QRS: -18 QRSD: 85 T: 27 QT: 377 QTc: 464 Interpretive Statements Sinus rhythm Left ventricular hypertrophy Electronically Signed On 10-13-2021 7:03:06 PDT by Jaylan Cordon /store/M0/[id number]/ecg/[id number]
--- NOTE | 2021-10-13 07:05 | EKG ---
[facility] Test Date: 2021-10-12 Pat Name: Jacinda Fields Department: ICU Room: 120B Gender: Female Manager Film: : 1945 Requested By: Josue Jarquin Order Number: [id number] Reading MD: Jaylan Cordon Measurements Intervals [place] Rate: 65 P: 28 WV: 175 QRS: -10 QRSD: 97 T: 23 QT: 447 QTc: 465 Interpretive Statements Sinus rhythm Low voltage, precordial leads Baseline wander in lead(s) II,III,aVF Electronically Signed On 10-13-2021 7:05:27 PDT by Jaylan Cordon /store/M0/[id number]/ecg/[id number]
[2021-10-13] MEDS: PANTOPRAZOLE 40 MG TABLET PO SCH (07:30)
[2021-10-13] MEDS: LEVOTHYROXINE 75 MCG TABLET PO SCH (07:30)
--- NOTE | 2021-10-13 07:51 | Internal Med Progress Note ---
SUBJECTIVE Subjective Patient information: Note initiated : 10/13/21 at 7:45 am Service Date, if different from initiated Date: [] Patient: Jacinda Fields 75 y/o F admitted on 10/10/21 for weakness, vision change. Chief Complaint: [] Interval history: History of present illness: Ms. Fields is a 75 year old F Presents the ED with generalized weakness poor appetite and left eye problems. Poor ambulation. She seemed mildly confused on what presentation ED. She also presented with esotropia of the left eye. Case was discussed with Dr. Santoro who considered stroke. CT brain was negative for any acute process but did show cerebral atrophy with enlarged ventricles and small vessel ischemic changes. Patient to follow-up with Dr. Santoro. Patient says she had surgery a year ago because of eye issues on the left eye and now she says she is having the same problem. Patient's urinalysis with nitrites and leukocyte esterase. Patient denies dysuria but does note dark urine and malodorous urine. CBC is unremarkable except for macrocytosis. Chemistry panel unremarkable except for low albumin and acidosis. Patient too weak to walk in the ED. Also noted to have multiple wounds on her body. When asked about that she says she is picks at her scabs. Asked how she got them she does not know she says maybe she bumped against this or that and that she has dogs. Denies fevers or chills. She lives at home with her and son. She does admit to feeling some confusion. Patient denies smoking or drug use. She does drink 3 beers a day and no more. 10/11 Patient quite anxious this morning and received IV Ativan, patient sleeping. Monitor closely given the sedation and monitor pulse ox closely. Elevated head of bed. Awaiting urine culture. Low folate level order methylmalonic colonic acid and homocystine. 10/12 Patient became hypotensive early this morning, was given 2 L lactated ringer bolus with some improvement but still hypotensive. Another liter was given patient still mildly hypotensive patient then transferred to ICU where Levophed was going to be started but blood pressure came up. At another point it dropped while she was sleeping but when she woke up she came back up and maintained. Etiology undetermined, suspect secondary to medications. She is on antibiotics for the past couple days. Her blood pressure medications were started yesterday which could be contributing that was all stopped. Did get some Librium for CIWA last night. Urine culture with gram-negative bacillus pending final identity. Patient sleeping but arousable. Patient feels tired and has some chills but otherwise no new complaints no pain no fevers. 10/13 Patient states poor sleep last night because she did not get her sleeping medications. However patient does feel a lot better. Her mentation is much more clear today and answering questions appropriately. She states that the wounds on her arms and legs are from her small dogs who jumped up and scratched her often. Hypomagnesia Review of Systems: denies headache/fever/chills/nausea/vomiting/chest or abdominal pain/cough/dyspnea/diarrhea. Otherwise see above. Constitutional Vitals: Vital Signs Temp Pulse Resp BP Pulse Ox 98.1 F 95 H 19 136/91 99 10/13/21 04:01 10/13/21 07:01 10/13/21 07:01 10/13/21 07:01 10/13/21 07:01 Period Temp Pulse Resp BP Sys/Fields Pulse Ox Last 24 Hr 95.8 F-98.1 F 45-116 10-30 77-155/43-97 87-100 Intake and Output 10/12/21 10/13/21 10/13/21 21:59 05:59 13:59 Intake Total 778 2455 Output Total 94 312 Balance 684 2143 Weight 76.566 kg Intake & Output: Intake & Output 10/12/21 10/13/21 10/13/21 21:59 05:59 13:59 Intake Total 778 2455 Output Total 94 312 Balance 684 2143 Weight 76.566 kg Intake: Nourishment/Supplement quantity 240 (ml) IV 58 1655 Sodium Chloride 0.9% 1,000 ml @ 1000 100 mls/hr IV .Q10H [facility] Rx#: [id number] Sodium Chloride 0.9% 250 ml @ 223 20 mls/hr IV .[id number] [facility] Rx#: [id number] Vibramycin 100 mg In Dextrose 5 100 % in Water 100 ml @ 100 mls/hr IV Q12H [facility] Rx#:[id number] Lactated Ringers 250 ml @ Wide 250 Open IV BOLUS ONE Rx#: [id number] Levophed 8 mg In Sodium 58 32 Chloride 0.9% 242 ml @ 10 MCG/ MIN 18.75 mls/hr IV Q14H [facility] Rx #:[id number] Oral 480 800 Output: Urine Catheter Amount 94 312 Other: Meal Dinner Percent of Meal Consumed 100% Feeding Ability Independent Nourishment/Supplement name ensure Urine Appearance Clear Clear Uretheral (Vinson) Clear Clear Urine Color Dark Yellow Bright Yellow Uretheral (Vinson) Pale Pale Urine Odor Normal Exam: General: Sedated medication, No acute Distress Eyes/N/T: Left eye esotropia Head/Neck: neck supple, CV: RRR, 2/6 SM, Pulm: Clear b/l, no wheezing/rhonchi/rales Abd: soft, nontender, +BS x4 Ext: no clubbing/cyanosis/edema Neuro: Sedated from medication, unable to thoroughly assess Skin: warm/dry, multiple small wounds appear to be freshly picked scabs and healing wounds, some with surrounding erythema. OBJ DATA Labs CBC & Chem 7: 10/12/21 05:31 10/13/21 06:00 Labs: Abnormal Lab Results 10/12/21 10/12/21 10/12/21 06:03 05:31 05:31 WBC 3.2 L RBC 3.03 L Hgb 9.9 L Hct 31.6 L MCV 104.3 H MPV 10.6 H [place] % (Auto) 14.6 H Lymph # (Auto) 1.13 L Absolute Neutrophils 1.55 L Carbon Dioxide 21 L Anion Gap 6.0 L BUN 7 L Calcium 7.7 L Direct Bilirubin GGT AST Total Protein Albumin Albumin/Globulin Ratio Homocysteine Cardiovas Cortisol AM Sample 3.2 L Urine Appearance Urine Nitrate Urine Urobilinogen Ur Leukocyte Esterase Urine RBC Urine WBC Urine Bacteria Urine Mucus 10/11/21 10/11/21 10/11/21 08:13 05:31 05:31 WBC RBC 3.50 L Hgb Hct MCV 102.9 H MPV [place] % (Auto) 13.4 H Lymph # (Auto) 1.16 L Absolute Neutrophils Carbon Dioxide 19 L Anion Gap BUN 5 L Calcium 8.1 L Direct Bilirubin 0.3 H GGT 69 H AST Total Protein 5.6 L Albumin 2.6 L Albumin/Globulin Ratio 0.9 L Homocysteine Cardiovas 13.8 H Cortisol AM Sample Urine Appearance Urine Nitrate Urine Urobilinogen Ur Leukocyte Esterase Urine RBC Urine WBC Urine Bacteria Urine Mucus 10/10/21 10/10/21 10/10/21 10:20 09:00 09:00 WBC RBC Hgb Hct MCV 106.1 H MPV [place] % (Auto) 13.7 H Lymph # (Auto) Absolute Neutrophils Carbon Dioxide 16 L Anion Gap 17.0 H BUN 6 L Calcium Direct Bilirubin GGT AST 35 H Total Protein Albumin 2.8 L Albumin/Globulin Ratio 0.8 L Homocysteine Cardiovas Cortisol AM Sample Urine Appearance Cloudy A Urine Nitrate Positive A Urine Urobilinogen 2.0 e.u./dl A Ur Leukocyte Esterase Large A Urine RBC 6 H Urine WBC > 182 H Urine Bacteria Many A Urine Mucus Many A Meds: Medications Acetaminophen (Acetaminophen 325 Mg Tablet) 650 mg PO Q6HP PRN; Protocol PRN Reason: Per Pain Protocol/Fever > 101 Last Admin: 10/10/21 22:56 Dose: 650 mg Documented by: Albuterol/Ipratropium (Ipratropium/Albuterol 3 Ml Ampul.Neb) 3 ml NEB Q4HP PRN PRN Reason: Shortness Of Breath Aspirin (Aspirin 81 Mg Tab.Chew) 81 mg PO DAILY [facility] Last Admin: 10/12/21 10:59 Dose: 81 mg Documented by: Atorvastatin Calcium (Atorvastatin 10 Mg Tablet) 10 mg PO [facility] Last Admin: 10/12/21 21:04 Dose: 10 mg Documented by: Calcium Carbonate/Glycine (Calcium Carbonate 500 Mg Tab.Chew) 1,000 mg PO HSP PRN PRN Reason: Heartburn Ceftriaxone Sodium (Ceftriaxone 1 Gm Vial) 1 gm IV Q24H [facility] Last Admin: 10/12/21 09:14 Dose: 1 gm Documented by: Docusate Sodium (Docusate Sodium 100 Mg Capsule) 100 mg PO BID [facility] Last Admin: 10/12/21 21:04 Dose: 100 mg Documented by: Duloxetine HCl (Duloxetine 20 Mg Capsule) 40 mg PO QDAY [facility] Last Admin: 10/12/21 11:00 Dose: 40 mg Documented by: Enoxaparin Sodium (Enoxaparin 40 Mg/0.4 Ml Syringe) 40 mg SQ DAILY [facility] Last Admin: 10/12/21 10:59 Dose: 40 mg Documented by: Estrogens Conjugated (Estrogens, Conjugated 0.9 Mg Tablet) 0.9 mg PO DAILY [facility] Last Admin: 10/12/21 11:34 Dose: Not Given Documented by: Folic Acid (Folic Acid 1 Mg Tablet) 1 mg PO DAILY [facility] Last Admin: 10/12/21 10:59 Dose: 1 mg Documented by: Gabapentin (Gabapentin 100 Mg Capsule) 200 mg PO TID [facility] Last Admin: 10/12/21 21:04 Dose: 200 mg Documented by: Haloperidol Lactate (Haloperidol Lactate 5 Mg/Ml Vial) 0.5 mg IV Q2HP PRN PRN Reason: Alcohol Withdrawal Hydroxyzine HCl (Hydroxyzine 25 Mg Tablet) 50 mg PO TIDP PRN PRN Reason: Anxiety Potassium Chloride 40 meq/ (Dextrose) 520 mls @ 130 mls/hr IV UD PRN PRN Reason: Potassium < 3 Magnesium Sulfate (Magnesium Sulfate) 2 gm in 50 mls @ 50 mls/hr IV UD PRN PRN Reason: Magnesium </= 1.6 Doxycycline Hyclate 100 mg/ (Dextrose) 100 mls @ 100 mls/hr IV Q12H [facility]; Protocol Last Infusion: 10/12/21 22:15 Dose: Infused Documented by: Thiamine HCl 100 mg/ Sodium (Chloride) 51 mls @ 50 mls/hr IV DAILY [facility] Last Infusion: 10/12/21 12:29 Dose: Infused Documented by: Norepinephrine Bitartrate 8 mg (/ Sodium Chloride) 250 mls @ 18.75 mls/hr IV Q14H [facility]; Protocol Last Titration: 10/13/21 05:10 Dose: 0 mcg/min, 0 mls/hr Documented by: Sodium Chloride (Sodium Chloride 0.9%) 250 mls @ 20 mls/hr IV .[id number] [facility] Last Admin: 10/12/21 22:15 Dose: 20 mls/hr Documented by: Sodium Chloride (Sodium Chloride 0.9%) 1,000 mls @ 100 mls/hr IV .Q10H [facility] Stop: 10/13/21 08:44 Last Infusion: 10/13/21 05:10 Dose: Infused Documented by: Iron Carb/Multivit/Juab/Folic Acid (Multivit,Ther Iron,Ca,Fa & Min 1 Tablet) 1 tab PO DAILY [facility] Last Admin: 10/12/21 10:59 Dose: 1 tab Documented by: Labetalol HCl (Labetalol 5 Mg/Ml Ml) 0 mg IV Q2HP PRN PRN Reason: Hypertension Levothyroxine Sodium ([facility] 75 Mcg Tablet) [facility] Last Admin: 10/13/21 07:30 Dose: 75 mcg Documented by: Montelukast Sodium (Montelukast 10 Mg Tablet) 10 mg PO QHS [facility] Last Admin: 10/12/21 21:04 Dose: 10 mg Documented by: Nabumetone (N[facility] 500 Mg Tablet) [facility]; Protocol Last Admin: 10/12/21 17:10 Dose: 750 mg Documented by: Ondansetron HCl (Ondansetron 4 Mg/2 Ml Vial) 4 mg IV Q4HP PRN PRN Reason: Nausea And Vomiting Pantoprazole Sodium (Pantoprazole 40 Mg Tablet) 40 mg PO [facility] Last Admin: 10/13/21 07:30 Dose: 40 mg Documented by: Polyethylene Glycol (Polyethylene Glycol 3350 17 Gm Packet) 17 gm PO DAILYP PRN PRN Reason: Constipation Potassium Chloride (Potassium Chloride 20 Meq Tablet) 40 meq PO UD PRN PRN Reason: Potssium is 3-3.5 Last Admin: 10/10/21 20:51 Dose: 40 meq Documented by: Potassium Chloride (Potassium Chloride 20 Meq Tablet) 40 meq PO UD PRN PRN Reason: Potassium < 3 Fluticasone/Salmeterol (Fluticasone/Salmeterol 500/50 Inhaler #14) 1 puff INH BID [facility] Last Admin: 10/12/21 21:04 Dose: Not Given Documented by: Senna (Sennosides 1 Tablet) 2 tab PO DAILYP PRN PRN Reason: Constipation Sodium Chloride (0.9 % Sodium Chloride 10 Ml Syringe) 10 ml IV Q8 [facility] Last Admin: 10/13/21 05:59 Dose: 10 ml Documented by: A/P Narrative A/P Narrative: A: *UTI (E. coli): *Hypotension: ?etiology, suspect med induced vs other -vasopressor off *Encephalopathy: 2/2 above versus other, suspect underlying MCI vs mild dementia - improved *early Dementia vs MCI: -CT brain with cerebral atrophy and chronic ischemic changes *Left eye esotropia: -CT brain no acute -MRI on acute pathology *Generalized weakness: Unable to ambulate on her own *Multiple small wounds in varying stages of healing with cellulitis around some lesions: -2/2 her small dogs scratching her *Metabolic acidosis: *HTN/HLD: Poorly controlled blood pressure *Depression/anxiety: *Hypothyroidism: tsh wnl *GERD: *Macrocytosis: Secondary to likely alcohol, b12 ok, folate low *Asthma: *Electrolyte d/o (hypomagnesemia *Alcohol use: states 3 beers/day P: -Rocephin/Doxy -Pending final UC -echo for hypotension -acth stim test -eye patch per Ophthal -check MMA/homocysteine, folate supp until return -ciwa, vitamins -hold BP meds> norvasc/ARB/verapamil & monitor blood pressure, restart verapamil first given sinus tach -Hold any sedating meds including her home Robaxin and decrease linda -cont ASA/statin -PT/OT -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
[2021-10-13] MEDS: DOCUSATE SODIUM 100 MG CAPSULE PO SCH ×2 (08:02→20:49)
[2021-10-13] MEDS: FOLIC ACID 1 MG TABLET PO SCH (08:02)
[2021-10-13] MEDS: ENOXAPARIN 40 MG/0.4 ML SYRINGE SQ SCH (08:02)
[2021-10-13] MEDS: DULoxetine 20 MG CAPSULE PO SCH (08:02)
[2021-10-13] MEDS: cefTRIAXone 1 GM VIAL IV SCH (08:02)
[2021-10-13] MEDS: NABUMETONE 500 MG TABLET PO SCH ×2 (08:02→16:28)
[2021-10-13] MEDS: MULTIVIT,THER IRON,CA,FA & MIN 1 TABLET PO SCH (08:02)
[2021-10-13] MEDS: ESTROGENS, CONJUGATED 0.9 MG TABLET PO SCH (08:03)
[2021-10-13] MEDS: ASPIRIN 81 MG TAB.CHEW PO SCH (08:03)
[2021-10-13] MEDS: FLUTICASONE/SALMETEROL 500/50 INHALER #14 INH SCH ×2 (08:03→20:49)
[2021-10-13 08:23] LABS: ALT/SGPT 11 U/L (<40); AST/SGOT 19 U/L (<32); Albumin 2.3 gm/dL (3.2-5.2); Albumin/Globulin Ratio 0.9 (1.0-2.3); Alkaline Phosphatase 48 U/L (39-117); Bilirubin,Direct 0.2 mg/dL (<0.3); Bilirubin,Total 0.3 mg/dL (0.1-1.0); Blood Urea Nitrogen 5 mg/dL (8-23); Calcium 8.2 mg/dL (8.6-10.4); Carbon Dioxide 19 mmol/L (22-30); Chloride 106 mmol/L (96-108); Globulin 2.5 gm/dL (2.2-3.7); Glomerular Filtration Rate 89; Glucose 99 mg/dL (70-105); Lactate Dehydrogenase 125 U/L (135-225); Triglycerides 68 mg/dL (<150); Uric Acid 4.3 mg/dL (2.5-8.0)
[2021-10-13] MEDS: THIAMINE 100 MG in 0.9 % SODIUM CHLORIDE 50 ML IV SCH (10:18)
[2021-10-13] MEDS: DOXYCYCLINE 100 MG in DEXTROSE 5% IN WATER 100 ML IV SCH ×2 (10:28→20:48)
[2021-10-13] MEDS ORDERED: NOREPINEPHRINE BITARTRATE 8 MG in 0.9 % SODIUM CHLORIDE 242 ML IV PRN (10:30)
[2021-10-13] MEDS ORDERED: diphenhydrAMINE 25 MG CAPSULE PO PRN (10:53)
[2021-10-13] MEDS: SODIUM BICARBONATE 650 MG TABLET PO SCH ×2 (12:08→20:48)
[2021-10-13] MEDS: 0.9 % SODIUM CHLORIDE 250 ML IV SCH (12:53)
[2021-10-13] MEDS: ACETAMINOPHEN 325 MG TABLET PO PRN (14:47)
[2021-10-13] MEDS: ATORVASTATIN 10 MG TABLET PO SCH (20:48)
[2021-10-13] MEDS: GABAPENTIN 100 MG CAPSULE PO SCH (20:48)
[2021-10-13] MEDS: MELATONIN 3 MG TABLET PO SCH (20:49)
[2021-10-13] MEDS: MONTELUKAST 10 MG TABLET PO SCH (20:49)
[2021-10-13] MEDS: traZODone HCL 150 MG TABLET PO SCH (20:49)
[2021-10-13] MEDS ORDERED: GABAPENTIN 100 MG CAPSULE PO SCH (21:00)
[2021-10-14] MEDS: 0.9 % SODIUM CHLORIDE 10 ML SYRINGE IV SCH ×3 (05:37→20:57)
[2021-10-14 06:51] LABS: Basophils # (Auto) 0.03 K/mcL (0.00-0.30); Basophils % (Auto) 0.6 % (0.0-2.0); Eosinophils # (Auto) 0.08 K/mcL (0.00-0.70); Eosinophils % (Auto) 1.6 % (0.0-7.0); Hematocrit 33.1 % (34.1-44.9); Hemoglobin 10.9 g/dL (11.2-15.7); Lymphocytes # (Auto) 1.39 K/mcL (1.50-4.80); Lymphocytes % (Auto) 28.7 % (15.5-49.0); Mean Cell Volume 101.8 fL (80.0-100.0); Mean Corpuscular HGB Conc 32.9 g/dL (31.0-36.0); Mean Platelet Volume 9.8 fL (7.4-10.4); Monocytes # (Auto) 0.72 K/mcL (0.10-0.90); Monocytes % (Auto) 14.8 % (1.0-12.0); Neutrophils % (Auto) 54.3 % (38.0-78.0); Platelet Count 182 K/mcL (140-440); RBC 3.25 M/mcL (3.59-5.38); Red Cell Distribution Width 12.7 % (11.5-14.5); WBC 4.9 K/mcL (4.5-11.0)
[2021-10-14 07:12] LABS: ALT/SGPT 12 U/L (<40); AST/SGOT 21 U/L (<32); Albumin 2.5 gm/dL (3.2-5.2); Albumin/Globulin Ratio 0.9 (1.0-2.3); Alkaline Phosphatase 50 U/L (39-117); Bilirubin,Direct < 0.2 mg/dL (0-0.3); Bilirubin,Total 0.3 mg/dL (0.1-1.0); Blood Urea Nitrogen 7 mg/dL (8-23); Calcium 8.7 mg/dL (8.6-10.4); Carbon Dioxide 22 mmol/L (22-30); Chloride 104 mmol/L (96-108); Globulin 2.8 gm/dL (2.2-3.7); Glomerular Filtration Rate 89; Glucose 87 mg/dL (70-105); Lactate Dehydrogenase 179 U/L (135-225); Phosphorous 4.5 mg/dL (2.5-4.5); Triglycerides 66 mg/dL (<150); Uric Acid 4.3 mg/dL (2.5-8.0)
--- NOTE | 2021-10-14 07:39 | Internal Med Progress Note ---
SUBJECTIVE Subjective Patient information: Note initiated : 10/14/21 at 7:35 am Service Date, if different from initiated Date: [] Patient: Jacinda Fields 75 y/o F admitted on 10/10/21 for weakness, vision change. Chief Complaint: [] Interval history: History of present illness: Ms. Fields is a 75 year old F Presents the ED with generalized weakness poor appetite and left eye problems. Poor ambulation. She seemed mildly confused on what presentation ED. She also presented with esotropia of the left eye. Case was discussed with Dr. Santoro who considered stroke. CT brain was negative for any acute process but did show cerebral atrophy with enlarged ventricles and small vessel ischemic changes. Patient to follow-up with Dr. Santoro. Patient says she had surgery a year ago because of eye issues on the left eye and now she says she is having the same problem. Patient's urinalysis with nitrites and leukocyte esterase. Patient denies dysuria but does note dark urine and malodorous urine. CBC is unremarkable except for macrocytosis. Chemistry panel unremarkable except for low albumin and acidosis. Patient too weak to walk in the ED. Also noted to have multiple wounds on her body. When asked about that she says she is picks at her scabs. Asked how she got them she does not know she says maybe she bumped against this or that and that she has dogs. Denies fevers or chills. She lives at home with her and son. She does admit to feeling some confusion. Patient denies smoking or drug use. She does drink 3 beers a day and no more. 10/11 Patient quite anxious this morning and received IV Ativan, patient sleeping. Monitor closely given the sedation and monitor pulse ox closely. Elevated head of bed. Awaiting urine culture. Low folate level order methylmalonic colonic acid and homocystine. 10/12 Patient became hypotensive early this morning, was given 2 L lactated ringer bolus with some improvement but still hypotensive. Another liter was given patient still mildly hypotensive patient then transferred to ICU where Levophed was going to be started but blood pressure came up. At another point it dropped while she was sleeping but when she woke up she came back up and maintained. Etiology undetermined, suspect secondary to medications. She is on antibiotics for the past couple days. Her blood pressure medications were started yesterday which could be contributing that was all stopped. Did get some Librium for CIWA last night. Urine culture with gram-negative bacillus pending final identity. Patient sleeping but arousable. Patient feels tired and has some chills but otherwise no new complaints no pain no fevers. 10/13 Patient states poor sleep last night because she did not get her sleeping medications. However patient does feel a lot better. Her mentation is much more clear today and answering questions appropriately. She states that the wounds on her arms and legs are from her small dogs who jumped up and scratched her often. Hypomagnesia 10/14 Sitting up in chair eating breakfast. Continues to feel better. Yesterday was a first time that her mentation was greatly improved. Leukopenia improving. Metabolic acidosis improved. Review of Systems: denies headache/fever/chills/nausea/vomiting/chest or abdominal pain/cough/dyspnea/diarrhea. Otherwise see above. Constitutional Vitals: Vital Signs Temp Pulse Resp BP Pulse Ox 96.8 F L 75 16 148/73 98 10/14/21 03:00 10/14/21 03:00 10/14/21 03:00 10/14/21 03:00 10/14/21 03:00 Period Temp Pulse Resp BP Sys/Fields Pulse Ox Last 24 Hr 96.3 F-98.7 F 74-97 16-20 95-148/68-106 92-100 Intake and Output 10/13/21 10/14/21 10/14/21 21:59 05:59 13:59 Intake Total 400 Output Total 300 Balance 100 Weight 75.841 kg Intake & Output: Intake & Output 10/13/21 10/14/21 10/14/21 21:59 05:59 13:59 Intake Total 400 Output Total 300 Balance 100 Weight 75.841 kg Intake: IV 100 Vibramycin 100 mg In Dextrose 5 100 % in Water 100 ml @ 100 mls/hr IV Q12H [facility] Rx#:[id number] Oral 300 Output: Void Amount 300 Other: Meal Dinner Percent of Meal Consumed 50% Feeding Ability Assist with Tray Set Up Urine Odor Normal Stool Size Large Small Stool Color Brown Brown Stool Consistency Soft Soft # Voids 1 # Bowel Movements 1 1 # of times incontinent of 1 Bowels Exam: General: Alert and awake, No acute Distress Eyes/N/T: Left eye esotropia Head/Neck: neck supple, CV: RRR, 2/6 SM, Pulm: Clear b/l, no wheezing/rhonchi/rales Abd: soft, nontender, +BS x4 Ext: no clubbing/cyanosis/edema Neuro: Alert and awake, no focal deficits, follows commands, mentation clear Skin: warm/dry, multiple small wounds appear to be freshly picked scabs and healing wounds, some with surrounding erythema -improving erythema around wounds OBJ DATA Labs CBC & Chem 7: 10/14/21 05:46 10/14/21 05:45 Labs: Abnormal Lab Results 10/14/21 10/14/21 10/13/21 05:46 05:45 06:00 WBC RBC 3.25 L Hgb 10.9 L Hct 33.1 L MCV 101.8 H MPV [place] % (Auto) 14.8 H Lymph # (Auto) 1.39 L Absolute Neutrophils Carbon Dioxide 19 L Anion Gap BUN 7 L 5 L Calcium 8.2 L Magnesium 1.3 L GGT 54 H 51 H Lactate Dehydrogenase 125 L Total Protein 5.3 L 4.8 L Albumin 2.5 L 2.3 L Albumin/Globulin Ratio 0.9 L 0.9 L Homocysteine Cardiovas Cortisol AM Sample 10/12/21 10/12/21 10/12/21 06:03 05:31 05:31 WBC 3.2 L RBC 3.03 L Hgb 9.9 L Hct 31.6 L MCV 104.3 H MPV 10.6 H [place] % (Auto) 14.6 H Lymph # (Auto) 1.13 L Absolute Neutrophils 1.55 L Carbon Dioxide 21 L Anion Gap 6.0 L BUN 7 L Calcium 7.7 L Magnesium GGT Lactate Dehydrogenase Total Protein Albumin Albumin/Globulin Ratio Homocysteine Cardiovas Cortisol AM Sample 3.2 L 10/11/21 08:13 WBC RBC Hgb Hct MCV MPV [place] % (Auto) Lymph # (Auto) Absolute Neutrophils Carbon Dioxide Anion Gap BUN Calcium Magnesium GGT Lactate Dehydrogenase Total Protein Albumin Albumin/Globulin Ratio Homocysteine Cardiovas 13.8 H Cortisol AM Sample Meds: Medications Acetaminophen (Acetaminophen 325 Mg Tablet) 650 mg PO Q6HP PRN; Protocol PRN Reason: Per Pain Protocol/Fever > 101 Last Admin: 10/13/21 14:47 Dose: 650 mg Documented by: Albuterol/Ipratropium (Ipratropium/Albuterol 3 Ml Ampul.Neb) 3 ml NEB Q4HP PRN PRN Reason: Shortness Of Breath Aspirin (Aspirin 81 Mg Tab.Chew) 81 mg PO DAILY [facility] Last Admin: 10/13/21 08:03 Dose: 81 mg Documented by: Atorvastatin Calcium (Atorvastatin 10 Mg Tablet) 10 mg PO HS [facility] Last Admin: 10/13/21 20:48 Dose: 10 mg Documented by: Calcium Carbonate/Glycine (Calcium Carbonate 500 Mg Tab.Chew) 1,000 mg PO HSP PRN PRN Reason: Heartburn Ceftriaxone Sodium (Ceftriaxone 1 Gm Vial) 1 gm IV Q24H [facility] Last Admin: 10/13/21 08:02 Dose: 1 gm Documented by: Diphenhydramine HCl (Diphenhydramine 25 Mg Capsule) 25 mg PO HSP PRN PRN Reason: Insomnia Docusate Sodium (Docusate Sodium 100 Mg Capsule) 100 mg PO BID [facility] Last Admin: 10/13/21 20:49 Dose: 100 mg Documented by: Duloxetine HCl (Duloxetine 20 Mg Capsule) 40 mg PO QDAY [facility] Last Admin: 10/13/21 08:02 Dose: 40 mg Documented by: Enoxaparin Sodium (Enoxaparin 40 Mg/0.4 Ml Syringe) 40 mg SQ DAILY [facility] Last Admin: 10/13/21 08:02 Dose: 40 mg Documented by: Estrogens Conjugated (Estrogens, Conjugated 0.9 Mg Tablet) 0.9 mg PO DAILY [facility] Last Admin: 10/13/21 08:03 Dose: Not Given Documented by: Folic Acid (Folic Acid 1 Mg Tablet) 1 mg PO DAILY [facility] Last Admin: 10/13/21 08:02 Dose: 1 mg Documented by: Gabapentin (Gabapentin 100 Mg Capsule) 300 mg PO [facility] Last Admin: 10/13/21 20:48 Dose: 300 mg Documented by: Haloperidol Lactate (Haloperidol Lactate 5 Mg/Ml Vial) 0.5 mg IV Q2HP PRN PRN Reason: Alcohol Withdrawal Hydroxyzine HCl (Hydroxyzine 25 Mg Tablet) 50 mg PO TIDP PRN PRN Reason: Anxiety Potassium Chloride 40 meq/ (Dextrose) 520 mls @ 130 mls/hr IV UD PRN PRN Reason: Potassium < 3 Magnesium Sulfate (Magnesium Sulfate) 2 gm in 50 mls @ 50 mls/hr IV UD PRN PRN Reason: Magnesium </= 1.6 Last Infusion: 10/13/21 09:57 Dose: Infused Documented by: Doxycycline Hyclate 100 mg/ (Dextrose) 100 mls @ 100 mls/hr IV Q12H [facility]; Protocol Last Infusion: 10/13/21 22:54 Dose: Infused Documented by: Norepinephrine Bitartrate 8 mg (/ Sodium Chloride) 250 mls @ 18.75 mls/hr IV Q12HP PRN; Protocol PRN Reason: Hypotension Iron Carb/Multivit/[place]/Folic Acid (Multivit,Ther Iron,Ca,Fa & Min 1 Tablet) 1 tab PO DAILY [facility] Last Admin: 10/13/21 08:02 Dose: 1 tab Documented by: Labetalol HCl (Labetalol 5 Mg/Ml Ml) 0 mg IV Q2HP PRN PRN Reason: Hypertension Levothyroxine Sodium (Levothyroxine 75 Mcg Tablet) 75 mcg PO [facility] Last Admin: 10/13/21 07:30 Dose: 75 mcg Documented by: Melatonin (Melatonin 3 Mg Tablet) [facility] Last Admin: 10/13/21 20:49 Dose: 3 mg Documented by: Montelukast Sodium ([facility]elukast 10 Mg Tablet) [facility] Last Admin: 10/13/21 20:49 Dose: 10 mg Documented by: [facility] ([facility] Mg [facility]t) [facility] Last Admin: 10/13/21 16:28 Dose: 750 mg Documented by: Ondansetron HCl (Ondansetron 4 Mg/2 Ml Vial) 4 mg IV Q4HP PRN PRN Reason: Nausea And Vomiting Pantoprazole Sodium (Pantoprazole 40 Mg Tablet) 40 mg PO [facility] Last Admin: 10/13/21 07:30 Dose: 40 mg Documented by: Polyethylene Glycol (Polyethylene Glycol 3350 17 Gm Packet) 17 gm PO DAILYP PRN PRN Reason: Constipation Potassium Chloride (Potassium Chloride 20 Meq Tablet) 40 meq PO UD PRN PRN Reason: Potssium is 3-3.5 Last Admin: 10/10/21 20:51 Dose: 40 meq Documented by: Potassium Chloride (Potassium Chloride 20 Meq Tablet) 40 meq PO UD PRN PRN Reason: Potassium < 3 Fluticasone/Salmeterol (Fluticasone/Salmeterol 500/50 Inhaler #14) 1 puff INH BID [facility] Last Admin: 10/13/21 20:49 Dose: Not Given Documented by: Senna (Sennosides 1 Tablet) 2 tab PO DAILYP PRN PRN Reason: Constipation Sodium Chloride (0.9 % Sodium Chloride 10 Ml Syringe) 10 ml IV Q8 [facility] Last Admin: 10/14/21 05:37 Dose: 10 ml Documented by: Thiamine HCl (Thiamine 100 Mg Tablet) 100 mg PO DAILY [facility] Trazodone HCl (Trazodone Hcl 150 Mg Tablet) 150 mg PO HS [facility] Last Admin: 10/13/21 20:49 Dose: 150 mg Documented by: A/P Narrative A/P Narrative: A: *UTI (E. coli): *Hypotension: ?etiology, suspect med induced vs other -resolved *Encephalopathy: 2/2 above versus other, suspect underlying MCI vs mild dementia -resolved *early Dementia vs MCI: -CT brain with cerebral atrophy and chronic ischemic changes *Left eye esotropia: -CT brain no acute -MRI on acute pathology *Generalized weakness: Unable to ambulate on her own *Multiple small wounds in varying stages of healing with cellulitis around some lesions: -2/2 her small dogs scratching her *Metabolic acidosis: *HTN/HLD: Poorly controlled blood pressure *Depression/anxiety: *Hypothyroidism: tsh wnl *GERD: *Macrocytosis: Secondary to likely alcohol, b12 ok, folate low *Asthma: *Electrolyte d/o (hypomagnesemia *Alcohol use: states 3 beers/day P: -Rocephin/Doxy -echo results pending -eye patch per Ophthal -MMA pending, folate supp until return -ciwa, vitamins -initially held BP meds (norvasc/ARB/verapamil) restart verapamil first given sinus tach -Hold any sedating meds including her home Robaxin and decreased linda -cont ASA/statin -PT/OT -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
[2021-10-14] MEDS: NABUMETONE 500 MG TABLET PO SCH ×2 (07:50→17:29)
[2021-10-14] MEDS: PANTOPRAZOLE 40 MG TABLET PO SCH (07:50)
[2021-10-14] MEDS: LEVOTHYROXINE 75 MCG TABLET PO SCH (07:50)
[2021-10-14] MEDS: DULoxetine 20 MG CAPSULE PO SCH (09:04)
[2021-10-14] MEDS: FLUTICASONE/SALMETEROL 500/50 INHALER #14 INH SCH ×3 (09:04→20:57)
[2021-10-14] MEDS: THIAMINE 100 MG TABLET PO SCH (09:05)
[2021-10-14] MEDS: MULTIVIT,THER IRON,CA,FA & MIN 1 TABLET PO SCH (09:05)
[2021-10-14] MEDS: VERAPAMIL 120 MG TAB.XL.24H PO SCH (09:05)
[2021-10-14] MEDS: DOCUSATE SODIUM 100 MG CAPSULE PO SCH ×2 (09:05→20:57)
[2021-10-14] MEDS: FOLIC ACID 1 MG TABLET PO SCH (09:05)
[2021-10-14] MEDS: ENOXAPARIN 40 MG/0.4 ML SYRINGE SQ SCH (09:05)
[2021-10-14] MEDS: ASPIRIN 81 MG TAB.CHEW PO SCH (09:05)
[2021-10-14] MEDS: ESTROGENS, CONJUGATED 0.9 MG TABLET PO SCH (09:06)
[2021-10-14] MEDS: DOXYCYCLINE 100 MG in DEXTROSE 5% IN WATER 100 ML IV SCH ×2 (09:06→20:55)
[2021-10-14] MEDS: cefTRIAXone 1 GM VIAL IV SCH (09:21)
--- NOTE | 2021-10-14 10:43 | Discharge Summary ---
Discharge Provider Provider IMPORTANT FOLLOW-UP INFORMATION FOR PCP: pt to Monitor blood pressure twice daily and bring log to PCP. stopped norvasc for low BP, only continued verapamil and losartan/hctz at reduced dose Patient information: Note initiated : 10/14/21 at 10:41 am Service Date, if different from initiated Date: [] Patient: Jacinda Fields 75 y/o F admitted on 10/10/21 for weakness, vision change. Chief Complaint: [] Date of admission: 10/10/21 18:55 Discharge date: 10/15/21 Primary care physician: Ariane Chen Consults: 10/10/21 16:23 Consult to Physician [CONS] Stat Comment: Consulting Provider: Josue Jarquin Reason For Exam: Physician to Consult COURSE Hospital Course Hospital course: History of present illness: Ms. Fields is a 75 year old F Presents the ED with generalized weakness poor appetite and left eye problems. Poor ambulation. She seemed mildly confused on what presentation ED. She also presented with esotropia of the left eye. Case was discussed with Dr. Santoro who considered stroke. CT brain was negative for any acute process but did show cerebral atrophy with enlarged ventricles and small vessel ischemic changes. Patient to follow-up with Dr. Santoro. Patient says she had surgery a year ago because of eye issues on the left eye and now she says she is having the same problem. Patient's urinalysis with nitrites and leukocyte esterase. Patient denies dysuria but does note dark urine and malodorous urine. CBC is unremarkable except for macrocytosis. Chemistry panel unremarkable except for low albumin and acidosis. Patient too weak to walk in the ED. Also noted to have multiple wounds on her body. When asked about that she says she is picks at her scabs. Asked how she got them she does not know she says maybe she bumped against this or that and that she has dogs. Denies fevers or chills. She lives at home with her and son. She does admit to feeling some confusion. Patient denies smoking or drug use. She does drink 3 beers a day and no more. 10/11 Patient quite anxious this morning and received IV Ativan, patient sleeping. Monitor closely given the sedation and monitor pulse ox closely. Elevated head of bed. Awaiting urine culture. Low folate level order methylmalonic colonic acid and homocystine. / Patient became hypotensive early this morning, was given 2 L lactated ringer bolus with some improvement but still hypotensive. Another liter was given patient still mildly hypotensive patient then transferred to ICU where Levophed was going to be started but blood pressure came up. At another point it dropped while she was sleeping but when she woke up she came back up and maintained. Etiology undetermined, suspect secondary to medications. She is on antibiotics for the past couple days. Her blood pressure medications were started yesterday which could be contributing that was all stopped. Did get some Librium for CIWA last night. Urine culture with gram-negative bacillus pending final identity. Patient sleeping but arousable. Patient feels tired and has some chills but otherwise no new complaints no pain no fevers. 10/13 Patient states poor sleep last night because she did not get her sleeping medications. However patient does feel a lot better. Her mentation is much more clear today and answering questions appropriately. She states that the wounds on her arms and legs are from her small dogs who jumped up and scratched her often. Hypomagnesia 10/14 Sitting up in chair eating breakfast. Continues to feel better. Yesterday was a first time that her mentation was greatly improved. Leukopenia improving. Metabolic acidosis improved. 10/15 Patient doing well. No overnight event or new complaints. Stable for discharge. A: *UTI (E. coli): *Hypotension: ?etiology, suspect med induced vs other *Encephalopathy: 2/2 above versus other, suspect underlying MCI vs mild dementia *early Dementia vs MCI: -CT brain with cerebral atrophy and chronic ischemic changes *Left eye esotropia: -MRI on acute pathology *Generalized weakness: Unable to ambulate on her own *Multiple small wounds in varying stages of healing with cellulitis around some lesions: -2/2 her small dogs scratching her *Metabolic acidosis: *HTN/HLD: Poorly controlled blood pressure *Depression/anxiety: *Hypothyroidism: tsh wnl *GERD: *Macrocytosis: Secondary to likely alcohol, b12 ok, folate low *Asthma: *Electrolyte d/o (hypomagnesemia *Alcohol use: states 3 beers/day P: -Rocephin/Doxy -eye patch per Ophthal -f/u with Dr. Santoro (dry roaster) -MMA pending, folate supp until return, elevated homocysteine -initially held BP meds (norvasc/ARB/verapamil) restarted verapamil first given sinus tach Discharge diagnosis: UTI encephalopathy hypertension left eye esotropia cellulitis Secondary discharge diagnosis: Suspect dementia versus MCI generalized weakness multiple wounds metabolic acidosis hypertension depression anxiety hypothyroidism GERD MAC cytosis asthma likely folate deficiency Time Spent with Patient Time attestation: Total time spent providing and/or coordinating discharge services: Time spent: Greater than 30 minutes EXAM Constitutional Vitals: Temp Pulse Resp BP Pulse Ox 96.9 F L 85 18 131/67 98 10/14/21 07:00 10/14/21 07:00 10/14/21 07:00 10/14/21 07:00 10/14/21 07:00 Discharge Data Data Completed and Pending Labs on day of discharge: Labs from last 24 hours 10/14/21 10/14/21 10/13/21 05:46 05:45 06:00 WBC 4.9 RBC 3.25 L Hgb 10.9 L Hct 33.1 L MCV 101.8 H MCH 33.5 MCHC 32.9 RDW 12.7 Plt Count 182 MPV 9.8 Neut % (Auto) 54.3 Lymph % (Auto) 28.7 [place] % (Auto) 14.8 H Eos % (Auto) 1.6 Baso % (Auto) 0.6 Lymph # (Auto) 1.39 L [place] # (Auto) 0.72 Eos # (Auto) 0.08 Baso # (Auto) 0.03 Absolute Neutrophils 2.63 Sodium 135 Potassium 3.9 Chloride 104 Carbon Dioxide 22 Anion Gap 9.0 BUN 7 L Creatinine 0.6 GFR Calculation 89 Glucose 87 Uric Acid 4.3 Calcium 8.7 Phosphorus 4.5 Magnesium 1.7 Total Bilirubin 0.3 Direct Bilirubin < 0.2 GGT 54 H AST 21 ALT 12 Alkaline Phosphatase 50 Lactate Dehydrogenase 179 Total Protein 5.3 L Albumin 2.5 L Globulin 2.8 Albumin/Globulin Ratio 0.9 L Triglycerides 66 Cortisol AM Sample 4.8 Preliminary micro results at discharge 10/10/21 09:25 Blood Culture - Preliminary Blood 10/10/21 09:18 Blood Culture - Preliminary Blood Discharge Plan Patient/Caregiver Discharge Instructions Activity: increase activity as tolerated Diet: Regular Diet Activity Restrictions/Additional Instructions: Monitor blood pressure twice daily and bring log to PCP Reduced home blood pressure medications for low blood pressure. Prescriptions: New doxycycline monohydrate 100 mg tablet 100 mg PO BID Qty: 4 0RF folic acid 1 mg Tablet 1 mg PO DAILY Qty: 30 0RF losartan-hydrochlorothiazide [Hyzaar] 50-12.5 mg tablet 1 tab PO QDAY Qty: 30 0RF Continued duloxetine 20 mg capsule,delayed release(DR/EC) 40 mg PO QDAY Qty: 180 0RF prazosin 1 mg capsule See Rx Instructions .ROUTE .COMPLEX Qty: 90 0RF Dose Instruction: TAKE 1 CAPSULE AT BEDTIME Rx Instructions: TAKE 1 CAPSULE AT BEDTIME aspirin 325 mg tablet 325 mg PO QDAY 0RF atorvastatin 10 mg tablet 10 mg tablet 10 mg PO QHS 0RF clobetasol 0.05 % solution 1 applic TOPICAL QDAY 0RF albuterol sulfate 90 mcg/actuation HFA aerosol inhaler 2 puff INHALATION Q4H PRN (Reason: Wheezing) 0RF omega-3 fatty acids-fish oil 1,000 MG capsule 1,000 mg PO DAILY 0RF levothyroxine 75 MCG tablet 75 mcg PO DAILY 0RF montelukast 10 MG tablet 10 mg PO QHS 0RF hsvlvrhk-dltf-pex-green tea ex 1 EACH tablet 1 each PO QDAY 0RF nabumetone 750 MG tablet 750 mg PO BIDCC 0RF pantoprazole 40 MG tablet,delayed release (DR/EC) 40 mg PO QDAY 0RF conjugated estrogens 0.9 MG tablet 0.9 mg PO DAILY 0RF verapamil 240 MG tablet extended release 240 mg PO HS 0RF cholecalciferol (vitamin D3) 5,000 UNIT capsule 5,000 unit PO QDAY 0RF ascorbic acid (vitamin C) 500 MG tablet 500 mg PO HS 0RF magnesium oxide 400 MG tablet 400 mg PO QDAY 0RF fluticasone propion-salmeterol 500-50 inhaler 1 inh INH BID 0RF potassium chloride 10 MEQ tablet extended release 10 meq PO BIDCC 0RF calcium carbonate 500 MG tablet 1,000 mg PO HS PRN (Reason: Heartburn) 0RF fluticasone propionate 250 MCG blister with device 1 each INH BID 0RF trazodone 300 mg tablet 300 mg PO HS 0RF Changed gabapentin 400 mg capsule 400 mg PO QHS Qty: 1 0RF methocarbamol 750 mg tablet 750 mg PO TID PRN (Reason: muscle spasm) Qty: 1 0RF Discontinued amlodipine 5 mg tablet 5 mg PO QDAY 0RF losartan-hydrochlorothiazide 1 TAB tablet 1 tab PO DAILY 0RF Rx Instructions: Losartan 100mg/HCTZ 25mg Follow Up Plan Follow up with: Ariane Chen MD [Primary Care Provider] - Patient Disposition: Home Health Service Prognosis: Fair Overall status at discharge: patient is progressing back to baseline Discharge Orders: Discharge Order (Routine); Ordered 10/15/21 Ordered By: Josue Jarquin [facility] VTE Deep Vein Thrombosis/Pulmonary Embolism Present on Admission: No
[2021-10-14] MEDS: ACETAMINOPHEN 325 MG TABLET PO PRN (11:20)
[2021-10-14] MEDS: MELATONIN 3 MG TABLET PO SCH (20:56)
[2021-10-14] MEDS: GABAPENTIN 100 MG CAPSULE PO SCH (20:56)
[2021-10-14] MEDS: traZODone HCL 150 MG TABLET PO SCH (20:56)
[2021-10-14] MEDS: ATORVASTATIN 10 MG TABLET PO SCH (20:56)
[2021-10-14] MEDS: MONTELUKAST 10 MG TABLET PO SCH (20:57)
[2021-10-15] MEDS: 0.9 % SODIUM CHLORIDE 10 ML SYRINGE IV SCH (05:20)
[2021-10-15] MEDS: cefTRIAXone 1 GM VIAL IV SCH (07:53)
[2021-10-15] MEDS: NABUMETONE 500 MG TABLET PO SCH (07:53)
[2021-10-15] MEDS: LEVOTHYROXINE 75 MCG TABLET PO SCH (07:54)
[2021-10-15] MEDS: PANTOPRAZOLE 40 MG TABLET PO SCH (07:54)
[2021-10-15] MEDS: ENOXAPARIN 40 MG/0.4 ML SYRINGE SQ SCH (10:15)
[2021-10-15] MEDS: DOXYCYCLINE 100 MG in DEXTROSE 5% IN WATER 100 ML IV SCH (10:15)
[2021-10-15] MEDS: DULoxetine 20 MG CAPSULE PO SCH (10:15)
[2021-10-15] MEDS: VERAPAMIL 120 MG TAB.XL.24H PO SCH (10:16)
[2021-10-15] MEDS: FOLIC ACID 1 MG TABLET PO SCH (10:16)
[2021-10-15] MEDS: DOCUSATE SODIUM 100 MG CAPSULE PO SCH (10:16)
[2021-10-15] MEDS: THIAMINE 100 MG TABLET PO SCH (10:16)
[2021-10-15] MEDS: ASPIRIN 81 MG TAB.CHEW PO SCH (10:16)
[2021-10-15] MEDS: MULTIVIT,THER IRON,CA,FA & MIN 1 TABLET PO SCH (10:16)
[2021-10-15] MEDS: ESTROGENS, CONJUGATED 0.9 MG TABLET PO SCH (10:17)
[2021-10-15] MEDS: FLUTICASONE/SALMETEROL 500/50 INHALER #14 INH SCH (10:26)
[2021-10-15] MEDS ORDERED: LOSARTAN 50 MG TABLET PO ONE (10:37)
[2021-10-15] MEDS ORDERED: HYDROCHLOROTHIAZIDE 12.5 MG CAPSULE PO ONE (10:38)
[2021-10-15 12:45] LABS: Methylmalonic Acid 110 nmol/L (87-318)
== END 2021-10-15 14:15 | disposition home health service (06) | DRG 689 ==
LOC: ED 08:21 → MEDSUR 18:55 → ICU 10-12 07:46 → MEDSUR 10-13 14:15
PROVIDERS: ADMIT Internal Medicine; ATTEND Internal Medicine

== ENCOUNTER 2024-01-22 20:35 | Inpatient (IN) ==
[2024-01-22] MEDS: 0.9 % SODIUM CHLORIDE 250 ML ONE (21:01)
[2024-01-22] MEDS: NOREPINEPHRINE 250 ML IV ONE (21:01)
[2024-01-22] MEDS: NOREPINEPHRINE BITARTRATE 16 MG in 0.9 % SODIUM CHLORIDE 234 ML IV SCH (21:04)
[2024-01-22] MEDS: NALOXONE HCL 0.4 MG/ML VIAL IV ONE (21:09)
[2024-01-22] MEDS: NOREPINEPHRINE 250 ML IV SCH (21:10)
[2024-01-22 21:16] LABS: Basophils # (Auto) 0.01 K/mcL (0.00-0.30); Basophils % (Auto) 0.2 % (0.0-2.0); Eosinophils # (Auto) 0.05 K/mcL (0.00-0.70); Eosinophils % (Auto) 0.8 % (0.0-7.0); Hematocrit 34.9 % (34.1-44.9); Hemoglobin 11.2 g/dL (11.2-15.7); Lymphocytes # (Auto) 2.31 K/mcL (1.50-4.80); Lymphocytes % (Auto) 38.8 % (15.5-49.0); Mean Cell Volume 99.4 fL (80.0-100.0); Mean Corpuscular HGB Conc 32.1 g/dL (31.0-36.0); Mean Platelet Volume 9.7 fL (8.8-12.5); Monocytes # (Auto) 0.51 K/mcL (0.10-0.90); Monocytes % (Auto) 8.6 % (1.0-12.0); Neutrophils % (Auto) 51.6 % (38.0-78.0); Platelet Count 219 K/mcL (140-440); RBC 3.51 M/mcL (3.59-5.38); Red Cell Distribution Width 13.9 % (11.5-14.5)
[2024-01-22 21:28] LABS: Alcohol,Blood 0.135 gm/dL (<0.010)
[2024-01-22 21:33] LABS: ALT/SGPT < 5 U/L (<40); AST/SGOT 16 U/L (<32); Albumin 2.9 gm/dL (3.2-5.2); Albumin/Globulin Ratio 1.1 (1.0-2.3); Alkaline Phosphatase 64 U/L (39-117); Bilirubin,Total < 0.2 mg/dL (0.1-1.0); Blood Urea Nitrogen 7 mg/dL (8-23); Carbon Dioxide 20 mmol/L (22-30); Chloride 104 mmol/L (96-108); Globulin 2.7 gm/dL (2.2-3.7); Glomerular Filtration Rate 71; Glucose 100 mg/dL (70-105); Potassium 3.3 mmol/L (3.3-5.1); Sodium 139 mmol/L (133-145); Thyroid Stimulating Hormone 7.91 uIU/mL (0.27-5.01)
[2024-01-22] MEDS: 0.9 % SODIUM CHLORIDE 250 ML IV SCH ×2 (21:44)
[2024-01-22] MEDS: 0.9 % SODIUM CHLORIDE 2,000 ML IV ONE (21:45)
[2024-01-22 22:20] LABS: Appearance,Urine TURBID (Clear); Bilirubin,Urine Negative (Negative); Color,Urine YELLOW; Glucose,Urine (UA) Negative (Negative); Ketones,Urine Negative (Negative); Leukocyte Esterase,Urine 250 /uL (Negative); Mucus,Urine MANY /hpf; Nitrate,Urine Negative (Negative); Protein,Urine 100 mg/dL (Negative); Specific Gravity,Urine 1.009 (1.000-1.035); Urine Blood 0.03 mg/dL (Negative); Urine RBC 18 /hpf (0-3); Urine Squamous Epithelial Cell 6 /hpf (0-4); Urine WBC > 182 /hpf (0-4); Urobilinogen,Urine Negative
[2024-01-22 22:25] LABS: Free T4 (Free Thyroxine) 1.14 ng/dL (0.93-1.70)
[2024-01-22 22:57] LABS: Amphetamine Screen,Urine Suspect positive; Barbiturate Screen,Urine None detected; Benzodiazepines Screen,Urine None detected; Cannabinoid Screen,Urine None detected; Cocaine Screen,Urine None detected; Fentanyl, Urine Screen None Detected; Opiate Screen,Urine None detected; Oxycodone, Urine Screen None detected; Phencyclidine Screen,Urine None detected
[2024-01-22] MEDS: 0.9 % SODIUM CHLORIDE 1,000 ML IV SCH (23:50)
[2024-01-22] MEDS: 0.9 % SODIUM CHLORIDE 1,000 ML IV ONE (23:50)
[2024-01-23] MEDS: ACETAMINOPHEN 1,000 MG/100 ML BAG IV ONE (00:14)
[2024-01-23] MEDS: CIPROFLOXACIN 400 MG/200 ML BAG IV ONE (00:36)
[2024-01-23] MEDS ORDERED: ONDANSETRON 4 MG/2 ML VIAL IV PRN (00:41)
[2024-01-23] MEDS ORDERED: LACTULOSE 20 GM/30 ML ORAL.SOL PO PRN (00:41)
[2024-01-23] MEDS: NALOXONE 2 MG/2 ML SYRINGE ONE (02:11)
[2024-01-23] MEDS: CIPROFLOXACIN 400 MG/200 ML BAG IV SCH (02:11)
[2024-01-23] MEDS: 0.9 % SODIUM CHLORIDE 10 ML SYRINGE IV SCH (05:39)
[2024-01-23] MEDS ORDERED: IPRATROPIUM/ALBUTEROL 3 ML AMPUL.NEB NEB PRN (07:56)
[2024-01-23] MEDS ORDERED: POTASSIUM CHLORIDE 20 MEQ TABLET PO PRN (07:56)
[2024-01-23] MEDS ORDERED: SENNOSIDES 1 TABLET PO PRN (07:56)
[2024-01-23] MEDS ORDERED: POTASSIUM CHLORIDE 40 MEQ in DEXTROSE 5% IN WATER 500 ML IV PRN (07:56)
[2024-01-23] MEDS ORDERED: MAGNESIUM SULFATE 2 GM/50 ML BAG IV PRN (07:56)
[2024-01-23] MEDS ORDERED: POLYETHYLENE GLYCOL 3350 17 GM PACKET PO PRN (07:56)
[2024-01-23] MEDS ORDERED: chlordiazePOXIDE 25 MG CAPSULE PO PRN (07:59)
[2024-01-23] MEDS ORDERED: LORazepam 2 MG/ML VIAL IV PRN (07:59)
[2024-01-23] MEDS: LABETALOL HCL 20 MG/4 ML VIAL IV PRN (08:15)
[2024-01-23] MEDS: 0.9 % SODIUM CHLORIDE 1,000 ML IV SCH (08:16)
[2024-01-23] MEDS: ENOXAPARIN 40 MG/0.4 ML SYRINGE SQ SCH (08:17)
[2024-01-23] MEDS: POTASSIUM CHLORIDE 20 MEQ TABLET PO PRN (08:18)
[2024-01-23] MEDS: MULTIVIT,THER IRON,CA,FA & MIN 1 TABLET PO SCH (08:18)
[2024-01-23] MEDS: DOCUSATE SODIUM 100 MG CAPSULE PO SCH (08:18)
[2024-01-23] MEDS: FOLIC ACID 1 MG TABLET PO SCH (08:18)
[2024-01-23 08:47] LABS: Eosinophils % (Manual) 1 % (0-7); Lymphocytes % 41 % (15-49); Monocytes % (Manual) 10 % (1-12); Platelet Estimate NORMAL (Normal); RBC Morphology NORMAL (Normal); Reactive Lymphocytes 4 % (0-2); Segmented Neutrophils % 44 % (38-78)
[2024-01-23] MEDS ORDERED: CIPROFLOXACIN 400 MG/200 ML BAG IV SCH (09:00)
[2024-01-23] MEDS: THIAMINE 100 MG in 0.9 % SODIUM CHLORIDE 50 ML IV SCH (09:07)
[2024-01-23] MEDS: AMPICILLIN SODIUM/SULBACTAM NA 3 GM in 0.9 % SODIUM CHLORIDE 100 ML IV SCH (09:07)
[2024-01-23] MEDS ORDERED: METHOCARBAMOL 750 MG TABLET PO PRN (18:03)
[2024-01-23] MEDS: LOSARTAN 50 MG TABLET PO SCH (20:09)
[2024-01-23] MEDS: GABAPENTIN 400 MG CAPSULE PO SCH (20:09)
[2024-01-23] MEDS: ACETAMINOPHEN 160 MG/5 ML ORAL.SOL PO PRN (21:13)
[2024-01-24 06:29] LABS: Basophils # (Auto) 0.01 K/mcL (0.00-0.30); Basophils % (Auto) 0.3 % (0.0-2.0); Eosinophils # (Auto) 0.08 K/mcL (0.00-0.70); Eosinophils % (Auto) 2.5 % (0.0-7.0); Hematocrit 33.2 % (34.1-44.9); Hemoglobin 10.3 g/dL (11.2-15.7); Lymphocytes % (Auto) 46.3 % (15.5-49.0); Mean Cell Volume 103.4 fL (80.0-100.0); Mean Platelet Volume 9.7 fL (8.8-12.5); Monocytes # (Auto) 0.36 K/mcL (0.10-0.90); Monocytes % (Auto) 11.1 % (1.0-12.0); Neutrophils % (Auto) 39.8 % (38.0-78.0); Platelet Count 137 K/mcL (140-440); RBC 3.21 M/mcL (3.59-5.38); Red Cell Distribution Width 14.4 % (11.5-14.5); WBC 3.2 K/mcL (4.5-11.0)
[2024-01-24 06:47] LABS: ALT/SGPT < 5 U/L (<40); AST/SGOT 15 U/L (<32); Albumin 2.6 gm/dL (3.2-5.2); Albumin/Globulin Ratio 1.1 (1.0-2.3); Alkaline Phosphatase 54 U/L (39-117); Bilirubin,Direct < 0.2 mg/dL (0-0.3); Bilirubin,Total 0.2 mg/dL (0.1-1.0); Blood Urea Nitrogen 5 mg/dL (8-23); Calcium 8.1 mg/dL (8.6-10.4); Carbon Dioxide 19 mmol/L (22-30); Chloride 109 mmol/L (96-108); Globulin 2.4 gm/dL (2.2-3.7); Glomerular Filtration Rate 88; Glucose 88 mg/dL (70-105); Lactate Dehydrogenase 143 U/L (135-225); Phosphorous 3.6 mg/dL (2.5-4.5); Potassium 3.9 mmol/L (3.3-5.1); Sodium 137 mmol/L (133-145); Triglycerides 75 mg/dL (<150); Uric Acid 2.9 mg/dL (2.5-8.0)
[2024-01-24] MEDS: SODIUM BICARBONATE 650 MG TABLET PO SCH (08:39)
[2024-01-24] MEDS: PANTOPRAZOLE 40 MG TABLET PO SCH (08:40)
[2024-01-24] MEDS: hydrALAZINE 20 MG/ML VIAL IV PRN (12:38)
[2024-01-24] MEDS: ACETAMINOPHEN 325 MG TABLET PO PRN (16:38)
[2024-01-24] MEDS: SENNOSIDES 1 TABLET PO PRN (20:10)
[2024-01-25 05:35] LABS: Basophils # (Auto) 0.01 K/mcL (0.00-0.30); Basophils % (Auto) 0.3 % (0.0-2.0); Eosinophils # (Auto) 0.09 K/mcL (0.00-0.70); Eosinophils % (Auto) 2.3 % (0.0-7.0); Hematocrit 31.8 % (34.1-44.9); Hemoglobin 10.2 g/dL (11.2-15.7); Lymphocytes # (Auto) 1.77 K/mcL (1.50-4.80); Lymphocytes % (Auto) 44.4 % (15.5-49.0); Mean Cell Volume 101.3 fL (80.0-100.0); Mean Corpuscular HGB Conc 32.1 g/dL (31.0-36.0); Mean Platelet Volume 9.5 fL (8.8-12.5); Monocytes % (Auto) 12.5 % (1.0-12.0); Neutrophils % (Auto) 40.2 % (38.0-78.0); Platelet Count 144 K/mcL (140-440); RBC 3.14 M/mcL (3.59-5.38); Red Cell Distribution Width 14.4 % (11.5-14.5)
[2024-01-25 06:30] LABS: Blood Urea Nitrogen 6 mg/dL (8-23); Calcium 8.2 mg/dL (8.6-10.4); Carbon Dioxide 24 mmol/L (22-30); Chloride 105 mmol/L (96-108); Glomerular Filtration Rate 88; Glucose 92 mg/dL (70-105); Potassium 3.3 mmol/L (3.3-5.1); Sodium 138 mmol/L (133-145)
[2024-01-25 12:40] VITALS: TEMP 97.6
[2024-01-25 13:19] VITALS: O2SAT 93
== END 2024-01-25 13:05 | disposition home health service (06) | DRG 871 ==
LOC: ED 20:35 → ICU 01-23 01:52
PROVIDERS: ADMIT Internal Medicine; ATTEND Internal Medicine